=== PATIENT | female | born 1950 | race Caucasian/White ===

== ENCOUNTER → 2019-10-21 09:27 | Outpatient (CLI) | payer OTHER, SELFPAY ==
--- NOTE | 2019-10-21 09:30 | DI.ECHO.S_ITS ---
[facility] +---------+ : : [address] : [place] : : : : [id number] : : : : Phone: [phone]+ Echocardiogram Report + + :Name: DEBBIE DE DIOS Study Date: 10/21/2019 Height: 69 in : :[facility] Weight: 120 lb : : Gender: Female BSA: 1.7 m2 : :: 1950 Age: 69 yrs BP: 132/80 mmHg: :Reason For Study: aortic stenosis : : Performed By: Nataliia Hines : :Referring: DAIN ARAGON : + + Interpretation Summary The aortic valve is bicuspid. The right and left coronary cusps are fused. There is mild to moderate, closer to mild, aortic stenosis with mild ascending aorta dilatation and turbulent flow. The left ventricular ejection fraction is normal. Left ventricular wall motion is normal. Diastolic parameters suggest probable normal left ventricular diastolic function and normal filling pressures. The right ventricle is normal in size and function. The right ventricular systolic pressure is estimated to be at least 21 mmHg based on an estimated right atrial pressure of 3 mm Hg. -Overall this echocardiogram shows a congenitally bicuspid aortic valve with mild ascending aorta dilatation as described above with [id number] aortic stenosis, which closer to mild range given patient body size despite calculated ALON, the indexed ALON is 0.82 cm^2/m^2. Peak velocity is 2.4 m/s, mean gradient 13 mmHg and severity ratio of 0.42. -No prior echo for comparison. Procedure: A two-dimensional transthoracic echocardiogram with color flow and Doppler was performed. The study quality was technically adequate. There is no prior echocardiogram noted for this patient. The patient was in sinus bradycardia with heart rates between 54-71 bpm during the exam. Left Ventricle: The left ventricle is normal in size and wall thickness. The ejection fraction is estimated to be 50-55%. The left ventricular ejection fraction is normal. Left ventricular wall motion is normal. Diastolic parameters suggest probable normal left ventricular diastolic function and normal filling pressures. Right Ventricle: The right ventricle is normal in size and function. Atria: Both atria are normal in size. There is no Doppler evidence for an interatrial shunt. Mitral Valve: There is a flat closure plane of the the mitral valve leaflets. There is trace mitral regurgitation. Aortic Valve: The aortic valve is bicuspid. The right and left coronary cusps are fused. Post-stenotic turbulence is visualized. There is mild to moderate aortic stenosis. No aortic regurgitation is present. Tricuspid Valve: The tricuspid valve is normal in structure and function. There is mild tricuspid regurgitation. The right ventricular systolic pressure is estimated to be at least 21 mmHg based on an estimated right atrial pressure of 3 mm Hg. Pulmonic Valve: The pulmonic valve is normal in structure and function. There is no pulmonic valvular regurgitation. Great Vessels: The aortic root is mildly dilated. The ascending aorta is mildly enlarged. The ascending aorta diameter corrected for SA is 21.76 mm/mm2. The IVC is of normal diameter and collapses greater than 50% with a sniff. This suggests a low right atrial pressure of 3 mm Hg. Pericardium/ Pleura There is no pericardial effusion. There is no pleural effusion. MMode/2D Measurements & Calculations LVIDd: 4.3 cm LVOT diam: 2.1 cm LVIDs: 2.9 cm Ao root diam: 3.3 cm FS: 31.7 % asc Aorta Diam: 3.7 cm EPSS: 1.1 cm Ao Arch Diam (Prox Trans): 2.8 cm IVSd: 0.72 cm LVPWd: 1.0 cm LV miner. diameter/BSA (cm/m^2): 2.6 LV sys. diameter/BSA (cm/m^2): 1.8 LA A2 area: 15.7 cm2 RA long axis: 3.7 cm LA A4 area: 13.3 cm2 RA area: 10.2 cm2 LA length (vol): 4.2 cm RA vol: 24.2 ml LA vol: 42.0 ml RA : 14.6 ml/m2 LA vol index: 25.2 ml/m2 IVC diam: 1.1 cm RVD1 (basal): 3.5 cm TAPSE: 2.8 cm Doppler Measurements & Calculations Ao V2 max: 238.2 cm/sec LVOT Max Chidi: 99.0 cm/sec Ao V2 mean: 170.7 cm/sec LV V1 max P.9 mmHg Ao max P.7 mmHg LV V1 VTI: 24.9 cm Ao mean P.8 mmHg ALON(I,D): 1.4 cm2 Ao V2 VTI: 59.3 cm ALON(V,D): 1.4 cm2 sev ratio: 0.42 ALON indexed to BSA (cm^2/m^2): 0.84 MV E max chidi: 70.7 cm/sec TR max chidi: 209.1 cm/sec MV A max chidi: 72.9 cm/sec TR max P.5 mmHg MV E/A: 0.97 PA V2 max: 82.4 cm/sec Med Peak E' Chidi: 8.0 cm/sec PA V2 mean: 57.7 cm/sec E/E' med: 8.8 PA mean P.5 mmHg Lat Peak E' Chidi: 11.6 cm/sec PA pr(Accel): 20.9 mmHg E/E' lat: 6.1 PA Accel Time: 0.14 sec E/e' average: 7.5 MV dec time: 0.22 sec MV P1/2t: 66.0 msec MV P1/2t max chidi: 70.3 cm/sec SV(LVOT): 82.6 ml MVA(P1/2t): 3.3 cm2 Electronically signed by: Pepe Ricketts M.D. on Reading Physician:10/21/2019 11:15 AM
== END ==
PROVIDERS: PCP Student in an Organized Health Care Education/Training Program; Referring Provider Student in an Organized Health Care Education/Training Program; Visit Provider Student in an Organized Health Care Education/Training Program
DX: I08.2 Rheumatic disorders of both aortic and tricuspid valves (principal); I77.810 Thoracic aortic ectasia
CPT/HCPCS: 93306

== ENCOUNTER → 2019-11-28 09:51 | Outpatient (CLI) | payer OTHER, SELFPAY | PROVIDERS: PCP Student in an Organized Health Care Education/Training Program; Referring Provider Physician Assistant; Visit Provider Physician Assistant | DX: K90.9 Intestinal malabsorption, unspecified (principal); R19.7 Diarrhea, unspecified | CPT/HCPCS: 82656 ==

== ENCOUNTER → 2019-12-27 09:33 | Outpatient (CLI) | payer OTHER, SELFPAY ==
[2019-12-27 10:05] LABS: Appearance Urine UA SL CLOUDY; Bilirubin Urine UA NEGATIVE (NEGATIVE); Color Urine UA YELLOW; Glucose Urine UA NEGATIVE (Negative); Ketones Urine UA NEGATIVE (NEGATIVE); Leukocyte Esterase Urine UA TRACE (NEGATIVE); Nitrite Urine UA NEGATIVE (Negative); Occult Blood Urine UA 1+ (Negative); Protein Urine UA NEGATIVE (Negative); Urobilinogen Urine UA 0.2 E.U./dL (0.2)
[2019-12-27 10:10] LABS: pH Urine UA 7.5 (4.5-8.0)
[2019-12-27 10:34] LABS: Bacteria Urine Moderate (10-30); Culture Indicated Urine Specimen Cultured; RBC Urine 0-1/HPF (0-5/HPF); Squamous Epithelial Cell Urine 0-1 /HPF (0-5/HPF); WBC Urine 1-5/HPF (0-5/HPF)
== END ==
PROVIDERS: PCP Student in an Organized Health Care Education/Training Program; Referring Provider Student in an Organized Health Care Education/Training Program; Visit Provider Student in an Organized Health Care Education/Training Program
DX: R30.0 Dysuria (principal)
CPT/HCPCS: 81001; 87077; 87086; 87186

== ENCOUNTER → 2020-04-02 13:07 | Outpatient (CLI) | payer MEDICARE, OTHER, SELFPAY ==
--- NOTE | 2020-04-02 13:08 | DI.MG.S_ITS ---
BILATERAL DIGITAL SCREENING MAMMOGRAM 3D/2D WITH CAD: 04/02/2020 CLINICAL: Routine screening. Family history of breast cancer. Comparison is made to exams dated: 11/02/2017 mammogram, 10/19/2016 mammogram, and 10/05/2015 mammogram - [facility]. The tissue of both breasts is heterogeneously dense. This may lower the sensitivity of mammography. Current study was also evaluated with a Computer Aided Detection (CAD) system. There is a possible focal asymmetry in the right breast at 7 o'clock middle depth. This is more prominent. No other significant masses, calcifications, or other findings are seen in either breast. IMPRESSION: INCOMPLETE: NEEDS ADDITIONAL IMAGING EVALUATION The possible focal asymmetry in the right breast is indeterminate. Additional views with possible ultrasound are recommended. This exam was interpreted at Station ID: [id number]. NOTE: For mammograms, a report in lay terms will be sent to the patient. Approximately 15% of breast malignancies will not be visualized mammographically. In the management of a palpable breast mass, a negative mammogram must not discourage biopsy of a clinically suspicious lesion. Electronically Signed By: Chester Good M.D. [facility]/:04/02/2020 17:32:25 letter sent: Additional Imaging Needed ACR BI-RADS Category 0: Incomplete 3340F
== END ==
PROVIDERS: PCP Student in an Organized Health Care Education/Training Program; Referring Provider Student in an Organized Health Care Education/Training Program; Visit Provider Student in an Organized Health Care Education/Training Program
DX: Z12.31 Encounter for screening mammogram for malignant neoplasm of breast (principal); Z80.3 Family history of malignant neoplasm of breast; Z13.820 Encounter for screening for osteoporosis; Z78.0 Asymptomatic menopausal state; Z91.89 Other specified personal risk factors, not elsewhere classified; Z82.62 Family history of osteoporosis; Z87.891 Personal history of nicotine dependence
CPT/HCPCS: 77063; 77067; 77080

== ENCOUNTER → 2020-05-04 09:26 | Outpatient (CLI) | payer MEDICARE, OTHER, SELFPAY ==
--- NOTE | 2020-05-04 09:51 | DI.MG.S_ITS ---
Patient Name: DEBBIE DE DIOS date: 1950 Sex: F Attending Physician: Monica Indications: Date: 05/04/2020 09:41 At the request of: DAIN ARAGON Procedure: MM special view RT UNILATERAL RIGHT DIGITAL DIAGNOSTIC MAMMOGRAM 3D/2D WITH ADDITIONAL VIEWS: 05/04/2020 CLINICAL: Additional evaluation requested from prior study. Comparison is made to exams dated: 04/02/2020 mammogram - [facility], 11/02/2017 mammogram, and 10/19/2016 mammogram - [facility]. The tissue of right breast is heterogeneously dense. This may lower the sensitivity of mammography. The possible focal asymmetry in the right breast at 7 o'clock middle depth is not seen in additional views. No other significant masses or calcifications are seen in the breast. IMPRESSION: BENIGN The focal asymmetry in the right breast is seen on the screening mammogram likely respresents superimposed fibroglandular tissue and is benign. There is no mammographic evidence of malignancy. A 1 year screening mammogram is recommended. This exam was interpreted at Station ID: [id number]. NOTE: For mammograms, a report in lay terms will be sent to the patient. Approximately 15% of breast malignancies will not be visualized mammographically. In the management of a palpable breast mass, a negative mammogram must not discourage biopsy of a clinically suspicious lesion. Electronically Signed By: Cinthia Chen M.D. lk/:05/04/2020 10:00:59 letter sent: Normal Exam ACR BI-RADS Category 2: Benign Finding(s) 3342F
== END ==
PROVIDERS: PCP Student in an Organized Health Care Education/Training Program; Referring Provider Student in an Organized Health Care Education/Training Program; Visit Provider Student in an Organized Health Care Education/Training Program
DX: R92.8 Other abnormal and inconclusive findings on diagnostic imaging of breast (principal)
CPT/HCPCS: 77065; G0279

== ENCOUNTER → 2020-12-08 14:53 | Outpatient (CLI) | payer MEDICARE, OTHER, SELFPAY | PROVIDERS: PCP Student in an Organized Health Care Education/Training Program; Visit Provider Physician Assistant | DX: N39.0 Urinary tract infection, site not specified (principal) | CPT/HCPCS: 87086 ==

== ENCOUNTER → 2021-04-30 10:39 | Outpatient (CLI) | payer MEDICARE, OTHER, SELFPAY ==
--- NOTE | 2021-04-30 | DI.MG.S_ITS ---
BILATERAL DIGITAL SCREENING MAMMOGRAM 3D/2D WITH CAD: 04/30/2021 CLINICAL: Routine screening. Family history of breast cancer. Comparison is made to exams dated: 05/04/2020 mammogram, 04/02/2020 mammogram - [facility], 11/02/2017 mammogram, and 10/19/2016 mammogram - [facility]. The tissue of both breasts is heterogeneously dense. This may lower the sensitivity of mammography. Current study was also evaluated with a Computer Aided Detection (CAD) system. No significant masses, calcifications, or other findings are seen in either breast. There has been no significant interval change. IMPRESSION: NEGATIVE There is no mammographic evidence of malignancy. A 1 year screening mammogram is recommended. This exam was interpreted at Station ID: [id number]. NOTE: For mammograms, a report in lay terms will be sent to the patient. Approximately 15% of breast malignancies will not be visualized mammographically. In the management of a palpable breast mass, a negative mammogram must not discourage biopsy of a clinically suspicious lesion. Electronically Signed By: Kyle brito/mary kate:04/30/2021 11:11:01 letter sent: Normal Exam ACR BI-RADS Category 1: Negative 3341F
== END ==
PROVIDERS: PCP Student in an Organized Health Care Education/Training Program; Referring Provider Student in an Organized Health Care Education/Training Program; Visit Provider Student in an Organized Health Care Education/Training Program
DX: Z12.31 Encounter for screening mammogram for malignant neoplasm of breast (principal); Z80.3 Family history of malignant neoplasm of breast
CPT/HCPCS: 77063; 77067

== ENCOUNTER → 2021-05-17 14:43 | Outpatient (CLI) | payer MEDICARE, OTHER, SELFPAY ==
--- NOTE | 2021-05-17 14:44 | DI.ECHO.S_ITS ---
[facility]---------+ [facility] +---------+ : : [address] : [place] : : : : [id number] : : : : Phone: [phone] +---------+ Echocardiogram Report + + :Name: DEBBIE DE DIOS Study Date: 05/17/2021 Height: 69 in : :[facility] ReadingLocation: Weight: 125 lb : : Gender: Female BSA: 1.7 m2 : :: 1950 Age: 70 yrs BP: 121/76 mmHg: :Reason For Study: SURVEILLANCE OF VALVE ABNORMALITIY : :Ordering Physician: MARGO, : :DAIN Performed By: Nataliia Hines : :Referring: DAIN ARAGON : + + Interpretation Summary Normal left ventricle size with ejection fraction 60-65%. The aortic valve is bicuspid. Mild to moderate aortic stenosis. The peak aortic velocity is 2.9 m/sec. (the previous exam was 2.4 m/sec.) Mild mitral regurgitation. Mld tricuspid regurgitation. The ascending aorta is moderately enlarged. Comparison is made with the echocardiogram of 10/21/2019, aortic stenosis has progressed. Procedure: A two-dimensional transthoracic echocardiogram with color flow and Doppler was performed. The study quality was technically adequate. Comparison is made with the echocardiogram of 10/21/2019. The patient was in sinus bradycardia with heart rates between 50-60 bpm during the exam. Left Ventricle: The left ventricle is normal in size and wall thickness. The ejection fraction is estimated to be 60-65%. Left ventricular wall motion is normal. Right Ventricle: The right ventricle is normal in size and function. Atria: The left atrial size is normal. Right atrial size is normal. There is no Doppler evidence for an interatrial shunt. Mitral Valve: There is a flat closure plane of the the mitral valve leaflets. There is mild mitral regurgitation. Aortic Valve: The aortic valve is bicuspid. Post-stenotic turbulence is visualized. There is mild to moderate aortic stenosis. The peak aortic velocity is 2.9 m/sec. The aortic valve mean gradient is 20 mmHg. The calculated aortic valve area is 1.1 cm2. The peak aortic velocity on the previous exam was 2.4 m/sec. No aortic regurgitation is present. Tricuspid Valve: The tricuspid valve is normal in structure and function. There is mild tricuspid regurgitation. The right ventricular systolic pressure is estimated to be at least 21 mmHg based on an estimated right atrial pressure of 3 mm Hg. Pulmonic Valve: The pulmonic valve is not well seen, but is grossly normal. There is trace pulmonic regurgitation. Great Vessels: The aortic root is mildly dilated. The ascending aorta is moderately enlarged. The IVC is of normal diameter and collapses greater than 50% with a sniff. This suggests a low right atrial pressure of 3 mm Hg. Pericardium/ Pleura There is no pericardial effusion. There is no pleural effusion. MMode/2D Measurements & Calculations LVIDd: 4.9 cm LVOT diam: 2.1 cm LVIDs: 3.3 cm Ao root diam: 3.4 cm FS: 33.1 % asc Aorta Diam: 4.0 cm IVSd: 0.71 cm Ao Arch Diam (Prox Trans): 3.0 cm LVPWd: 0.81 cm LV miner. diameter/BSA (cm/m^2): 2.9 LV sys. diameter/BSA (cm/m^2): 1.9 LA A2 area: 19.0 cm2 RA long axis: 4.3 cm LA A4 area: 13.6 cm2 RA area: 14.5 cm2 LA length (vol): 4.4 cm RA vol: 41.4 ml LA vol: 50.0 ml RA : 24.5 ml/m2 LA vol index: 29.6 ml/m2 IVC diam: 1.2 cm RVD1 (basal): 3.3 cm TAPSE: 2.2 cm Doppler Measurements & Calculations Ao V2 max: 285.1 cm/sec LVOT Max Chidi: 90.1 cm/sec Ao V2 mean: 209.4 cm/sec LV V1 max P.3 mmHg Ao max P.0 mmHg LV V1 VTI: 22.3 cm Ao mean P.3 mmHg ALON(I,D): 1.0 cm2 Ao V2 VTI: 74.0 cm ALON(V,D): 1.1 cm2 sev ratio: 0.30 ALON indexed to BSA (cm^2/m^2): 0.59 MV E max chidi: 71.5 cm/sec TR max chidi: 213.3 cm/sec MV A max chidi: 59.0 cm/sec TR max P.2 mmHg MV E/A: 1.2 PA pr(Accel): 15.6 mmHg Med Peak E' Chidi: 5.8 cm/sec E/E' med: 12.4 Lat Peak E' Chidi: 9.4 cm/sec E/E' lat: 7.6 E/e' average: 10.0 MV dec time: 0.25 sec SV(LVOT): 74.5 ml Electronically signed by: Sherman Salcido on Reading Physician:05/17/2021 06:05 PM
== END ==
PROVIDERS: PCP Student in an Organized Health Care Education/Training Program; Referring Provider Student in an Organized Health Care Education/Training Program; Visit Provider Student in an Organized Health Care Education/Training Program
DX: Q23.1 Congenital insufficiency of aortic valve (principal); I08.3 Combined rheumatic disorders of mitral, aortic and tricuspid valves; I77.810 Thoracic aortic ectasia
CPT/HCPCS: 93306

== ENCOUNTER → 2021-11-26 08:11 | Outpatient (CLI) | payer MEDICARE, OTHER, SELFPAY ==
[2021-11-26 09:07] LABS: Add Manual Diff / Slide Review NO; Basophils Absolute Auto 0 /uL (0-100); Basophils Percent Auto 1.1 % (0-2); Eosinophils Absolute Auto 100 /uL (0-450); Eosinophils Percent Auto 1.8 % (2-4); Hematocrit 40.4 % (36-46); Hemoglobin 13.8 g/dL (12.0-16.0); Lymphocytes Absolute Auto 700 /uL (1100-4500); Lymphocytes Percent Auto 19.8 % (25-40); Mean Corpuscular HGB Conc 34.1 % (30-36); Mean Corpuscular Hemoglobin 30.8 PG (26-34); Mean Corpuscular Volume 90.3 fL (80-100); Monocytes Absolute Auto 400 /uL (0-900); Neutrophils Absolute Auto 2500 /uL (1500-7000); Neutrophils Percent Auto 67.3 % (50-75); Platelet Count 157 X10^3/uL (150-400); Red Blood Cell Count 4.48 X10^6/uL (4.0-5.2); Red Cell Distribution Width 13.6 % (11.6-14.8); White Blood Cell Count 3.7 X10^3/uL (4.5-11.0)
[2021-11-26 09:17] LABS: Alanine Aminotransferase 21 IU/L (<35); Albumin 4.1 g/dL (3.5-5.0); Albumin Globulin Ratio 1.6 (1.0-2.8); Alkaline Phosphatase 68 U/L (38-126); Aspartate Aminotransferase 31 IU/L (14-36); BUN Creatinine Ratio 27.5 (6-22); Bilirubin Total 0.7 mg/dL (0.2-1.3); Blood Urea Nitrogen 19 mg/dL (7-17); Calcium 9.1 mg/dL (8.4-10.2); Carbon Dioxide 31 mmol/L (22-32); Chloride 105 mmol/L (98-107); Cholesterol 182 mg/dL (140-199); Estimated Glomerular Filt Rate > 60.0 mL/min (>60); Globulin 2.5 g/dL (1.7-4.1); Glucose 90 mg/dL (80-110); HEMOLYSIS < 15 (0-50); Potassium 4.4 mmol/L (3.4-5.1); Sodium 141 mmol/L (137-145); Total Protein 6.6 g/dL (6.3-8.2); Triglycerides 31 mg/dL (35-150)
[2021-11-26 09:28] LABS: HDL Cholesterol 114 mg/dL (40-60); LDL Cholesterol Calculated 62 mg/dL (<100)
== END ==
PROVIDERS: PCP Student in an Organized Health Care Education/Training Program; Referring Provider Student in an Organized Health Care Education/Training Program; Visit Provider Student in an Organized Health Care Education/Training Program
DX: K52.9 Noninfective gastroenteritis and colitis, unspecified (principal); Z13.6 Encounter for screening for cardiovascular disorders
CPT/HCPCS: 36415; 80053; 80061; 85025

== ENCOUNTER → 2021-12-22 17:40 | Outpatient (ROUT) | payer SELFPAY ==
[2021-12-23 07:08] LABS: HBsAg Screen Negative (Negative); Hepatitis A Antibody IgM Negative (Negative); Hepatitis B Core Antibody IgM Negative (Negative); Hepatitis C Antibody <0.1 s/co ratio (0.0-0.9)
[2021-12-23 16:40] LABS: HIV 1 & 2 Ab/Ag 4th Gen Combo NEGATIVE (NEGATIVE)
== END ==
PROVIDERS: PCP Student in an Organized Health Care Education/Training Program; Visit Provider Student in an Organized Health Care Education/Training Program
DX: Z77.21 Contact with and (suspected) exposure to potentially hazardous body fluids; W46.1XXA Contact with contaminated hypodermic needle, initial encounter
CPT/HCPCS: 36415; 80074; 87389

== ENCOUNTER → 2022-04-29 11:53 | Outpatient (CLI) | payer MEDICARE, OTHER, SELFPAY ==
--- NOTE | 2022-04-29 11:55 | DI.US.S_ITS ---
ULTRASOUND OF RIGHT BREAST: 04/29/2022 CLINICAL: Diffuse right breast pain x 2 months. Comparison is made to exams dated: 04/29/2022 mammogram, 04/30/2021 mammogram, 05/04/2020 mammogram, 04/02/2020 mammogram - [facility], and 11/02/2017 mammogram - [facility]. Ultrasound of the right breast was performed on the area of interest. Key scale images of the real-time examination were reviewed. IMPRESSION: NEGATIVE There is no sonographic evidence of malignancy. There is no mammographic or sonographic abnormality seen in the right breast to correspond with the pain, however, clinical followup is recommended. A 1 year screening mammogram is recommended. This exam was interpreted at Station ID: [id number]. Electronically Signed By: Cinthia monteiro/:04/29/2022 13:13:46 letter sent: Clinical Evaluation Ultrasound BI-RADS: 1 Negative
--- NOTE | 2022-04-29 11:55 | DI.MG.S_ITS ---
BILATERAL DIGITAL DIAGNOSTIC MAMMOGRAM 3D/2D: 04/29/2022 CLINICAL: Right breast pain. Comparison is made to exams dated: 04/30/2021 mammogram, 05/04/2020 mammogram, 04/02/2020 mammogram - [facility], and 11/02/2017 mammogram - [facility]. Both breasts are heterogeneously dense, which may obscure small masses (category c / 51-75% glandular tissue). No significant masses, calcifications, or other findings are seen in either breast. IMPRESSION: INCOMPLETE: NEEDS ADDITIONAL IMAGING EVALUATION There is no mammographic abnormality seen in the right breast to correspond with the pain, however, targeted ultrasound of the right breast is recommended and will be performed immediately following this exam. Based on the Tyrer Cuzick model (a risk assessment model) the patient's lifetime risk is 13.9% and her 10 year risk is 9.6%. According to the ACR, ACS, and NCCN guidelines, an annual breast MRI exam along with mammogram is recommended if the patient's lifetime risk is 20% or greater. This exam was interpreted at Station ID: [id number]. NOTE: For mammograms, a report in lay terms will be sent to the patient. Approximately 15% of breast malignancies will not be visualized mammographically. In the management of a palpable breast mass, a negative mammogram must not discourage biopsy of a clinically suspicious lesion. Electronically Signed By: Cinthia Chen M.D. lk/:04/29/2022 12:34:05 ACR BI-RADS Category 0: Incomplete 3340F
== END ==
PROVIDERS: PCP Student in an Organized Health Care Education/Training Program; Referring Provider Student in an Organized Health Care Education/Training Program; Visit Provider Student in an Organized Health Care Education/Training Program
DX: N64.4 Mastodynia (principal)
CPT/HCPCS: 76642; 77066; G0279

== ENCOUNTER → 2022-09-28 12:44 | Outpatient (CLI) | payer MEDICARE, SELFPAY | PROVIDERS: PCP Student in an Organized Health Care Education/Training Program; Referring Provider Student in an Organized Health Care Education/Training Program; Visit Provider Student in an Organized Health Care Education/Training Program | DX: Z78.0 Asymptomatic menopausal state (principal); Z13.820 Encounter for screening for osteoporosis; M85.852 Other specified disorders of bone density and structure, left thigh | CPT/HCPCS: 77080 ==

== ENCOUNTER → 2022-10-06 09:11 | Outpatient (CLI) | payer MEDICARE, SELFPAY ==
--- NOTE | 2022-10-06 09:12 | DI.RAD.S_ITS ---
PROCEDURE: XR KNEE RT 3V INDICATIONS: Assess baseline osteoarthritis TECHNIQUE: 3 views of the knee were acquired. COMPARISON: None. FINDINGS: Bones: No fractures or dislocations. No suspicious bony lesions. Soft tissues: Trace joint effusion. No suspicious soft tissue calcifications. IMPRESSION: Mild degenerative joint disease. Dictated by: Justin Gaffney M.D. on 10/06/2022 at 13:11 Approved by: Justin Gaffney M.D. on 10/06/2022 at 13:14
--- NOTE | 2022-10-06 09:12 | DI.RAD.S_ITS ---
PROCEDURE: XR KNEE LT 3V INDICATIONS: Assess baseline osteoarthritis TECHNIQUE: 3 views of the knee were acquired. COMPARISON: None. FINDINGS: Bones: No fractures or dislocations. No suspicious bony lesions. Mild tricompartmental osteoarthritis. Soft tissues: Trace joint effusion. No suspicious soft tissue calcifications. IMPRESSION: Mild tricompartmental osteoarthritis. Dictated by: Justin Gaffney M.D. on 10/06/2022 at 12:25 Approved by: Justin Gaffney M.D. on 10/06/2022 at 17:20
== END ==
PROVIDERS: PCP Student in an Organized Health Care Education/Training Program; Referring Provider Student in an Organized Health Care Education/Training Program; Visit Provider Student in an Organized Health Care Education/Training Program
DX: M17.0 Bilateral primary osteoarthritis of knee (principal); M25.561 Pain in right knee; M25.562 Pain in left knee
CPT/HCPCS: 73562

== ENCOUNTER → 2022-11-04 10:18 | Outpatient (CLI) | payer MEDICARE, SELFPAY ==
[2022-11-04 12:11] LABS: NT-proBNP (BNP-Adult 18+) 138 pg/mL (<125)
== END ==
PROVIDERS: Family Provider Student in an Organized Health Care Education/Training Program; PCP Student in an Organized Health Care Education/Training Program; Referring Provider Internal Medicine Cardiovascular Disease; Visit Provider Internal Medicine Cardiovascular Disease
DX: Q23.1 Congenital insufficiency of aortic valve (principal)
CPT/HCPCS: 36415; 83880

== ENCOUNTER 2023-02-13 11:15 | Outpatient (RCR) | payer MEDICARE, SELFPAY ==
--- NOTE | 2022-12-12 19:12 | PT.OIE ---
Current Diagnoses Stiffness of right hip, not elsewhere classified (12/12/22) Stiffness of left hip, not elsewhere classified (12/12/22) Muscle weakness (generalized) (12/12/22) Overactive bladder (12/12/22) Urinary tract infection, site not specified (12/12/22) Past Medical History (Last Updated 11/03/22 @ 12:44 by Barbie Thompson RN) Aortic regurgitation (~2001) Aortic stenosis (~2001) Chicken pox (~1998) Diverticulosis large intestine w/o perforation or abscess w/o bleeding Dyspareunia Herpes (~1994) History of urinary incontinence (~2001) Measles (~1959) Other acquired deformities of right foot Rosacea (~2007) Vision disorder Past Surgical History (Last Updated 10/01/19 @ 19:50 by Chela Ashley) Anesthesia History of breast implant (~1988) History of breast implant removal (~1995) History of cataract removal with insertion of prosthetic lens (~2018) Visit Care Team Role Provider Type Deshaun Anderson MD Family Provider Physician Primary Care Provider Specialty: Internal Medicine Address: [address] [place] [address], [address], [address] Email: [email or web address] Imani Hummel DO Attending Provider Non-Staff Referring Provider Specialty: LITERACY SPECIALIST Address: [address] [place] [address], [id number] Email: Physical Therapy Initial Evaluation PT-OP-A Visit Information Start: 12/03/22 16:51 Freq: Status: Active Protocol: Document 12/12/22 10:37 LRN (Rec: 12/12/22 11:22 LRN [id number]) Out-Patient Physical Therapy Visit Information Visit Information Visit Type Initial Evaluation Visit Start Time 10:36 Visit Stop Time 11:20 Total Visit Minutes 46 Visit Number 1 Evaluation Information Evaluation Date 12/12/22 Precautions Precautions Biscuspid aortic valve being monitored every 6 months. , no children. Takes an anti-biotic after intercourse to prevent UTI's. PT-OP-B Current Condition Start: 12/03/22 16:51 Freq: Status: Active Protocol: Document 12/12/22 10:37 LRN (Rec: 12/12/22 11:22 LRN [id number]) Current Condition History of Current Condition Onset Date 1 year ago. Current Complaints Urinary leakage with an urge. History of Current Condition Pt reports she got metal balls to strengthen her PF but they would fall out. She has also noticed that with friends when she drinks wine, watching TV when she gets up to use the bathroom she has urinary leakage. She will wet her underwear if she waits too long. She has on her own cut expresso in the morning and has found it is helpful. She reports urinating 8-10 times a day and 1 time during the night. Prior Treatments and Tests Pt purchased on her own weighted vaginal balls for PF strengthening. She used them for couple of weeks in standing, did not try in supine. Treatment Goals Patient/Caregiver Goals Pt goal is 1) to look for strengthening help. To strengthen her pelvic floor muscles so on standing, after waiting too long, she has no urinary leakage. 2) Be placed on a HEP of PF strengthening exercises. Personal Factors Other Personal Factors That May Effect Active: Plays golf w/o use of Therapy/Recovery cart, walks dog 1-2 miles daily. Pt wanting to get back into lifting weights to improve UE strength; therefore plans to use home row machine and join a gym to start lifting weights. PT-OP-C Subjective Start: 12/03/22 16:51 Freq: Status: Active Protocol: Document 12/12/22 10:37 LRN (Rec: 12/12/22 11:22 LRN [id number]) Patient Questionnaires Pelvic Pain and Urgency/Frequency Patient Symptom Scale Pelvic Pain Score 20 PT-OP-I Pelvic Floor Start: 12/03/22 16:51 Freq: Status: Active Protocol: Document 12/12/22 10:37 LRN (Rec: 12/12/22 11:22 LRN [id number]) Pelvic Floor Assessment Urine Urinary Symptoms Urge Sensation Other Urinary Symptoms Spasm after urinating. Urine goes off to a side. Leakage Cause Urge Leaks Per Day 1 Nocturia 1 Pads Used In 24 Hours 0 Bowel Bowel Surgery No Other Bowel Symptoms Pt notes she is lactose intolerant and foods with a lot of fat causes diahrrea. Bowel Movement Frequency 1-2x/daily [place] Stool Chart Type 1-7 4 Prolapse Cystocele Grade 2 Urethrocele Grade 2 Prolapse Comments Uterine prolapse is present Perineal Descent Resting Absent Bearing Absent Contraction Ability Voluntary Contraction Weak Manual Muscle Testing Left 0 Manual Muscle Testing Right 0 Manual Muscle Testing Anterior 0 Manual Muscle Testing Posterior 2 Muscle Endurance (Seconds) 1 Number of Quick Contractions In 10 3 Seconds Comments Pelvic Floor Comments Pt external PF tissues are dry . Redness is present in the labia majora and on the inside at the vaginal entry. PF contraction is with moderate use of TA and visible gluteal but not significant. No contraction is felt with hip AD. PT-OP-J Posture/Palpation/Skin Start: 12/03/22 16:51 Freq: Status: Active Protocol: Document 12/12/22 10:37 LRN (Rec: 12/12/22 11:22 LRN [id number]) Posture Evaluation Position Standing Head/C-Spine Posture Forward Head L-Spine Posture Shifted Left Shoulder Posture (L) Elevated Scapula Posture (L) Elevated Pelvis Posture Anteriorly Tilted,(L) Iliac Crest Superior Comments Posture Comments Trunk lean to left PT-OP-K Range of Motion Start: 12/03/22 16:51 Freq: Status: Active Protocol: Document 12/12/22 10:37 LRN (Rec: 12/12/22 11:22 LRN [id number]) Lumbar Spine Range of Motion Lumbar Spine Active Degrees Testing Position Standing Flexion 72 Extension 15 Rotation Left 12 Rotation Right 10 Lateral Flexion Left 13 Lateral Flexion Right 15 ROM Limitations Soft Tissue Tightness Hip Goniometric Range of Motion Hip Right Passive Testing Position Supine Internal Rotation 40 External Rotation 45 Left Passive Testing Position Supine Internal Rotation 45 External Rotation 50 PT-OP-M Strength Start: 12/03/22 16:51 Freq: Status: Active Protocol: Document 12/12/22 10:37 LRN (Rec: 12/12/22 11:22 LRN [id number]) Trunk Strength Trunk Manual Muscle Testing Core Stabilization Loss of core stab with L hip flex and extension Hip Strength Hip Manual Muscle Testing Right Comments All strength is 5/5 Left Comments All strength is 5/5 PT-OP-Q Treatments Start: 12/03/22 16:51 Freq: Status: Active Protocol: Document 12/12/22 10:37 LRN (Rec: 12/12/22 11:22 LRN [id number]) Self-Care/Home Management Treatment Education Patient Education Body Mechanics,Home Exercise Program Other Education Discussed results of evaluation, goals, and plan of care (POC). Pt agreeable to goals and POC. Education and transfer training with coordination of proper breathing to minimize core pressures for stand<>sit< >supine. Activities Self-Care/Home Management Activities Issued & reviewed HEP: Kegel exercises for Quick Flicks, Long Holds & Aggrevators. PT-OP-T Assessment and Plan Start: 12/03/22 16:51 Freq: Status: Active Protocol: Document 12/12/22 10:37 LRN (Rec: 12/12/22 11:22 LRN [id number]) Physical Therapy Assessment Rehab Potential Rehabilitation Potential Excellent Evaluation Complexity Number of Personal Factors/Comorbidities 1-2 Number of Body Systems Impaired 4 or More Clinical Presentation at Evaluation Evolving Impairments Impairments Activity Tolerance,Posture,ROM ,Strength,Transfers Other Impairments Urge urinary leakage. Goals Four Impairment Redness and tenderness at the Labia Minora Short Term Goal (STG) Pt will be educated in proper vulvar/genital care. STG Duration 01/06/23 Three Impairment Decreased PF strength Short Term Goal (STG) Pt will be educated in urinary delay technique to be able to hold her urine in the presence of an urge until making it to a bathroom. STG Duration 01/13/23 Meal Cooker Goal (LTG) Improve PF strength with pt able to hold PF contraction for 8-10 secs in order to prevent urinary leakage with transfer sit<>chief financial officer the presence of an urge. LTG Duration 02/24/23 Two Impairment Decreased hip and trunk mobility Impairment Hip PROM (in deg's): IR: 40 R , 45 L; ER 45 R, 50 L. Lumbar AROM (in deg's): Flex 72, Ext 10, lateral flex 13 L, 15 R. Short Term Goal (STG) Pt will be educated in hip ( rotators, iliopsoas) and trunk (hamstring) mobility ex's to improve mobility and posture with proper core abdominal pressures during exercise and be able to exercise at her local gym w/o urinary leakage. STG Duration 01/13/23 Meal Cooker Goal (LTG) Improve hip mobility with pt able to perform Quick contractions in order to prevent urinary leakage in the presence of a strong urge. LTG Duration 02/24/23 One Impairment Pt lacks an independent self care HEP. Short Term Goal (STG) Pt educated in proper transfers to lessen core abdominal pressure. 12/12/22: Pt educated in proper transfer stand<>sit<> supine with initial education in lessening core abdominal pressure. STG Duration 12/23/22 Meal Cooker Goal (LTG) Pt will be independent in a self care HEP for PF strengthening. LTG Duration 02/24/23 Assessment Summary Assessment Pt is a 72 year old female with urge incontinence with reported episodes of stress incontinence. The pt is very weak in her pelvic floor (PF) muscles both with long holds and quick flicks. She demonstrates decreased hip and trunk mobility and decreased core stability, that probably limits her PF strength of contraction. She has dry tissues of her PF and has redness at the entry of her vagina with redness and tenderness at her Labia Minora . The pt may benefit from estrogen cream to improve the health of her pelvic floor. The pt will benefit from skilled physical therapy to work towards achieving the above stated goals. Physical Therapy Plan Frequency and Duration Frequency of Treatment 1x/Week Plan of Care Start Date 12/12/22 Plan of Care End Date 02/24/23 Therapeutic Interventions Therapeutic Interventions Home Exercise Program,Manual Therapy,Neuromuscular Re- education,Patient/Caregiver Education,Self-Care/Home Management,Soft Tissue Mobilization,Therapeutic Activities,Therapeutic Exercises Modalities Biofeedback,Cold Pack/Ice Massage,Electric Stimulation Other Referrals/Consults Referrals/Consults Recommended Assessment for redness of her PF tissues at the labia minor and vaginal entry and for dryness of PF tissues. Next Visit Focus/Plan Next Note Type Treatment Note Next Visit Plan Review bladder diary and discuss fluid management, teaching urge deference technique. Review proper breathing with transfer for proper core pressure management. Assess deep breathing and start LE roll in/out ex when appropriate. Education in vulvar/genital care and body mechanics. Educate & train Kegel without use of substitute muscles. Ex/HEP: PF/core stabilization strengthening, improve hip mobility. Assess abdominal soft tissue ( bladder) mobility.
--- NOTE | 2022-12-12 19:12 | PT.OPPOC ---
Physical, Occupational & Speech Therapy At [facility] Current Diagnoses Stiffness of right hip, not elsewhere classified (12/12/22) Stiffness of left hip, not elsewhere classified (12/12/22) Muscle weakness (generalized) (12/12/22) Overactive bladder (12/12/22) Urinary tract infection, site not specified (12/12/22) Visit Care Team Role Provider Type Deshaun Anderson MD Family Provider Physician Primary Care Provider Specialty: Internal Medicine Address: [address] [place] [address], [address], [address] Email: [email or web address] Imani Hummel DO Attending Provider Non-Staff Referring Provider Specialty: SAND SYSTEM OPERATOR Address: [address] [place], [address] Email: Plan Of Care PT-OP-T Assessment and Plan Start: 12/03/22 16:51 Freq: Status: Active Protocol: Document 12/12/22 10:37 LRN (Rec: 12/12/22 11:22 LRN [id number]) Physical Therapy Assessment Rehab Potential Rehabilitation Potential Excellent Evaluation Complexity Number of Personal Factors/Comorbidities 1-2 Number of Body Systems Impaired 4 or More Clinical Presentation at Evaluation Evolving Impairments Impairments Activity Tolerance,Posture,ROM ,Strength,Transfers Other Impairments Urge urinary leakage. Goals Four Impairment Redness and tenderness at the Labia Minora Short Term Goal (STG) Pt will be educated in proper vulvar/genital care. STG Duration 01/06/23 Three Impairment Decreased PF strength Short Term Goal (STG) Pt will be educated in urinary delay technique to be able to hold her urine in the presence of an urge until making it to a bathroom. STG Duration 01/13/23 Language Arts Teacher Goal (LTG) Improve PF strength with pt able to hold PF contraction for 8-10 secs in order to prevent urinary leakage with transfer sit<>information systems operator the presence of an urge. LTG Duration 02/24/23 Two Impairment Decreased hip and trunk mobility Impairment Hip PROM (in deg's): IR: 40 R , 45 L; ER 45 R, 50 L. Lumbar AROM (in deg's): Flex 72, Ext 10, lateral flex 13 L, 15 R. Short Term Goal (STG) Pt will be educated in hip ( rotators, iliopsoas) and trunk (hamstring) mobility ex's to improve mobility and posture with proper core abdominal pressures during exercise and be able to exercise at her local gym w/o urinary leakage. STG Duration 01/13/23 Language Arts Teacher Goal (LTG) Improve hip mobility with pt able to perform Quick contractions in order to prevent urinary leakage in the presence of a strong urge. LTG Duration 02/24/23 One Impairment Pt lacks an independent self care HEP. Short Term Goal (STG) Pt educated in proper transfers to lessen core abdominal pressure. 12/12/22: Pt educated in proper transfer stand<>sit<> supine with initial education in lessening core abdominal pressure. STG Duration 12/23/22 Language Arts Teacher Goal (LTG) Pt will be independent in a self care HEP for PF strengthening. LTG Duration 02/24/23 Assessment Summary Assessment Pt is a 72 year old female with urge incontinence with reported episodes of stress incontinence. The pt is very weak in her pelvic floor (PF) muscles both with long holds and quick flicks. She demonstrates decreased hip and trunk mobility and decreased core stability, that probably limits her PF strength of contraction. She has dry tissues of her PF and has redness at the entry of her vagina with redness and tenderness at her Labia Minora . The pt may benefit from estrogen cream to improve the health of her pelvic floor. The pt will benefit from skilled physical therapy to work towards achieving the above stated goals. Physical Therapy Plan Frequency and Duration Frequency of Treatment 1x/Week Plan of Care Start Date 12/12/22 Plan of Care End Date 02/24/23 Therapeutic Interventions Therapeutic Interventions Home Exercise Program,Manual Therapy,Neuromuscular Re- education,Patient/Caregiver Education,Self-Care/Home Management,Soft Tissue Mobilization,Therapeutic Activities,Therapeutic Exercises Modalities Biofeedback,Cold Pack/Ice Massage,Electric Stimulation Other Referrals/Consults Referrals/Consults Recommended Assessment for redness of her PF tissues at the labia minor and vaginal entry and for dryness of PF tissues. Next Visit Focus/Plan Next Note Type Treatment Note Next Visit Plan Review bladder diary and discuss fluid management, teaching urge deference technique. Review proper breathing with transfer for proper core pressure management. Assess deep breathing and start LE roll in/out ex when appropriate. Education in vulvar/genital care and body mechanics. Educate & train Kegel without use of substitute muscles. Ex/HEP: PF/core stabilization strengthening, improve hip mobility. Assess abdominal soft tissue ( bladder) mobility. Plan of Care Dates Plan of Care Start Date 12/12/22 Plan of Care End Date 02/24/23 Electronically Signed by: Cinthia Granger, PT 12/12/22 2301 If you are in agreement with this Plan of Care, please return a signed and dated copy. I have reviewed this Plan of Care and certify that the skilled therapy services above are required to meet the patient?s needs. Physician Signature Date Printed Name and Credentials Clinical Instructor Signature Printed Name and Credentials
--- NOTE | 2022-12-19 12:54 | PT.OTN ---
Current Diagnoses Stiffness of right hip, not elsewhere classified (12/19/22) Stiffness of left hip, not elsewhere classified (12/19/22) Muscle weakness (generalized) (12/19/22) Overactive bladder (12/19/22) Urinary tract infection, site not specified (12/19/22) Physical Therapy Treatment Note PT-OP-A Visit Information Start: 12/03/22 16:51 Freq: Status: Active Protocol: Document 12/19/22 08:03 LRN (Rec: 12/19/22 08:50 LRN [id number]) Out-Patient Physical Therapy Visit Information Visit Information Visit Type Treatment Note Visit Start Time 08:03 Visit Stop Time 08:43 Total Visit Minutes 40 Visit Number 1 Evaluation Information Evaluation Date 12/12/22 Precautions Precautions Biscuspid aortic valve being monitored every 6 months. , no children. Takes an anti-biotic after intercourse to prevent UTI's. PT-OP-B Current Condition Start: 12/03/22 16:51 Freq: Status: Active Protocol: Document 12/12/22 10:37 LRN (Rec: 12/12/22 11:22 LRN [id number]) Current Condition History of Current Condition Onset Date 1 year ago. Current Complaints Urinary leakage with an urge. History of Current Condition Pt reports she got metal balls to strengthen her PF but they would fall out. She has also noticed that with friends when she drinks wine, watching TV when she gets up to use the bathroom she has urinary leakage. She will wet her underwear if she waits too long. She has on her own cut expresso in the morning and has found it is helpful. She reports urinating 8-10 times a day and 1 time during the night. Prior Treatments and Tests Pt purchased on her own weighted vaginal balls for PF strengthening. She used them for couple of weeks in standing, did not try in supine. Treatment Goals Patient/Caregiver Goals Pt goal is 1) to look for strengthening help. To strengthen her pelvic floor muscles so on standing, after waiting too long, she has no urinary leakage. 2) Be placed on a HEP of PF strengthening exercises. Personal Factors Other Personal Factors That May Effect Active: Plays golf w/o use of Therapy/Recovery cart, walks dog 1-2 miles daily. Pt wanting to get back into lifting weights to improve UE strength; therefore plans to use home row machine and join a gym to start lifting weights. PT-OP-C Subjective Start: 12/03/22 16:51 Freq: Status: Active Protocol: Document 12/19/22 08:03 LRN (Rec: 12/19/22 08:50 LRN [id number]) OP-PT Subjective Patient Comments Patient Comments Noticed that she urinates a lot. PT-OP-I Pelvic Floor Start: 12/03/22 16:51 Freq: Status: Active Protocol: Document 12/12/22 10:37 LRN (Rec: 12/12/22 11:22 LRN [id number]) Pelvic Floor Assessment Urine Urinary Symptoms Urge Sensation Other Urinary Symptoms Spasm after urinating. Urine goes off to a side. Leakage Cause Urge Leaks Per Day 1 Nocturia 1 Pads Used In 24 Hours 0 Bowel Bowel Surgery No Other Bowel Symptoms Pt notes she is lactose intolerant and foods with a lot of fat causes diahrrea. Bowel Movement Frequency 1-2x/daily [place] Stool Chart Type 1-7 4 Prolapse Cystocele Grade 2 Urethrocele Grade 2 Prolapse Comments Uterine prolapse is present Perineal Descent Resting Absent Bearing Absent Contraction Ability Voluntary Contraction Weak Manual Muscle Testing Left 0 Manual Muscle Testing Right 0 Manual Muscle Testing Anterior 0 Manual Muscle Testing Posterior 2 Muscle Endurance (Seconds) 1 Number of Quick Contractions In 10 3 Seconds Comments Pelvic Floor Comments Pt external PF tissues are dry . Redness is present in the labia majora and on the inside at the vaginal entry. PF contraction is with moderate use of TA and visible gluteal but not significant. No contraction is felt with hip AD. PT-OP-J Posture/Palpation/Skin Start: 12/03/22 16:51 Freq: Status: Active Protocol: Document 12/12/22 10:37 LRN (Rec: 12/12/22 11:22 LRN [id number]) Posture Evaluation Position Standing Head/C-Spine Posture Forward Head L-Spine Posture Shifted Left Shoulder Posture (L) Elevated Scapula Posture (L) Elevated Pelvis Posture Anteriorly Tilted,(L) Iliac Crest Superior Comments Posture Comments Trunk lean to left PT-OP-K Range of Motion Start: 12/03/22 16:51 Freq: Status: Active Protocol: Document 12/12/22 10:37 LRN (Rec: 12/12/22 11:22 LRN [id number]) Lumbar Spine Range of Motion Lumbar Spine Active Degrees Testing Position Standing Flexion 72 Extension 15 Rotation Left 12 Rotation Right 10 Lateral Flexion Left 13 Lateral Flexion Right 15 ROM Limitations Soft Tissue Tightness Hip Goniometric Range of Motion Hip Right Passive Testing Position Supine Internal Rotation 40 External Rotation 45 Left Passive Testing Position Supine Internal Rotation 45 External Rotation 50 PT-OP-M Strength Start: 12/03/22 16:51 Freq: Status: Active Protocol: Document 12/12/22 10:37 LRN (Rec: 12/12/22 11:22 LRN [id number]) Trunk Strength Trunk Manual Muscle Testing Core Stabilization Loss of core stab with L hip flex and extension Hip Strength Hip Manual Muscle Testing Right Comments All strength is 5/5 Left Comments All strength is 5/5 PT-OP-Q Treatments Start: 12/03/22 16:51 Freq: Status: Active Protocol: Document 12/19/22 08:03 LRN (Rec: 12/19/22 08:50 LRN [id number]) Therapeutic Exercises Supine Exercises LE Roll in/out Supine Exercise Name LE Roll in/out Comments Pt assist for LE movement. Deep Breathing Supine Exercise Name Deep Breathing Comments Much cuing needed for chest and lower ribs/abdomen for proper coordination Other Exercises Sup<>Sigt<>Stand Other Exercise Name Transfer with breath and PF contraction Comments Verbal and phys cuing needed for breath, PF contractions, & mvmt Self-Care/Home Management Treatment Education Other Education Discussed at length Bladder diary and noted dialy BM's with normal stool. Recommendations made such as drinking water before bladder irritants (caffeine and wine), reducing bladder irritants, etc.., discussed times between voiding, as longer with more fluids and the possibility of needing to retrain bladder. Educated and discussed urinary delay techinque. Discussed water hydration norms. Activities Self-Care/Home Management Activities Handout issued & reviewed for Bladder Irritants, Urge deference technque, and Diaphragmatic breathing with LE roll in/outs. PT-OP-T Assessment and Plan Start: 12/03/22 16:51 Freq: Status: Active Protocol: Document 12/19/22 08:03 LRN (Rec: 12/19/22 08:50 LRN [id number]) Physical Therapy Assessment Goals Four Impairment Redness and tenderness at the [place] Short Term Goal (STG) Pt will be educated in proper vulvar/genital care. STG Duration 01/06/23 Three Impairment Decreased PF strength Short Term Goal (STG) Pt will be educated in urinary delay technique to be able to hold her urine in the presence of an urge until making it to a bathroom. 12/19/22: Bladder Irritants and Urge deference techinque. STG Duration 01/13/23 (12/19/22: MET GOAL) Halfway Goal (LTG) Improve PF strength with pt able to hold PF contraction for 8-10 secs in order to prevent urinary leakage with transfer sit<>fuel cell binder the presence of an urge. LTG Duration 02/24/23 Two Impairment Decreased hip and trunk mobility Impairment Hip PROM (in deg's): IR: 40 R , 45 L; ER 45 R, 50 L. Lumbar AROM (in deg's): Flex 72, Ext 10, lateral flex 13 L, 15 R. Short Term Goal (STG) Pt will be educated in hip ( rotators, iliopsoas) and trunk (hamstring) mobility ex's to improve mobility and posture with proper core abdominal pressures during exercise and be able to exercise at her local gym w/o urinary leakage. STG Duration 01/13/23 Halfway Goal (LTG) Improve hip mobility with pt able to perform Quick contractions in order to prevent urinary leakage in the presence of a strong urge. LTG Duration 02/24/23 One Impairment Pt lacks an independent self care HEP. Short Term Goal (STG) Pt educated in proper transfers to lessen core abdominal pressure. 12/12/22: Pt educated in proper transfer stand<>sit<> supine with initial education in lessening core abdominal pressure. 12/19/22: Pt educated in proper transfer sup<>sit<>stand coordinating breath work and PF contractions. STG Duration 12/23/22 (12/19/22: MET GOAL) Halfway Goal (LTG) Pt will be independent in a self care HEP for PF strengthening. LTG Duration 02/24/23 Progress Towards Goals Progress Comments Educated Bladder Irritants and Urge deference techinque, deep breathing with assisted LE roll in/outs. Assessment Summary Assessment Pt attends due to urge incontinence with reported episodes of stress incontinence, but after bladder diary review appears to be primarily stress incontinence. Pt learns quickly, but has trouble with abdominal breathing, breathing mainly thorught chest; therefore further training needed. Physical Therapy Plan Frequency and Duration Frequency of Treatment 1x/Week Plan of Care Start Date 12/12/22 Plan of Care End Date 02/24/23 Next Visit Focus/Plan Next Note Type Treatment Note Next Visit Plan Review: deep breathing and LE roll in/out ex. Education in vulvar/genital care and body mechanics. Educate & train Kegel on wedge without use of substitute muscles. Ex/HEP: PF/core stabilization strengthening, improve hip mobility. Assess abdominal soft tissue ( bladder) mobility.
--- NOTE | 2022-12-26 17:50 | PT.OTN ---
Current Diagnoses Stiffness of right hip, not elsewhere classified (12/26/22) Stiffness of left hip, not elsewhere classified (12/26/22) Muscle weakness (generalized) (12/26/22) Overactive bladder (12/26/22) Urinary tract infection, site not specified (12/26/22) Physical Therapy Treatment Note PT-OP-A Visit Information Start: 12/03/22 16:51 Freq: Status: Active Protocol: Document 12/26/22 08:05 LRN (Rec: 12/26/22 08:48 LRN [id number]) Out-Patient Physical Therapy Visit Information Visit Information Visit Type Treatment Note Visit Start Time 08:05 Visit Stop Time 08:45 Total Visit Minutes 42 Visit Number Evaluation Information Evaluation Date 12/12/22 Precautions Precautions Biscuspid aortic valve being monitored every 6 months. , no children. Takes an anti-biotic after intercourse to prevent UTI's. PT-OP-B Current Condition Start: 12/03/22 16:51 Freq: Status: Active Protocol: Document 12/12/22 10:37 LRN (Rec: 12/12/22 11:22 LRN [id number]) Current Condition History of Current Condition Onset Date 1 year ago. Current Complaints Urinary leakage with an urge. History of Current Condition Pt reports she got metal balls to strengthen her PF but they would fall out. She has also noticed that with friends when she drinks wine, watching TV when she gets up to use the bathroom she has urinary leakage. She will wet her underwear if she waits too long. She has on her own cut expresso in the morning and has found it is helpful. She reports urinating 8-10 times a day and 1 time during the night. Prior Treatments and Tests Pt purchased on her own weighted vaginal balls for PF strengthening. She used them for couple of weeks in standing, did not try in supine. Treatment Goals Patient/Caregiver Goals Pt goal is 1) to look for strengthening help. To strengthen her pelvic floor muscles so on standing, after waiting too long, she has no urinary leakage. 2) Be placed on a HEP of PF strengthening exercises. Personal Factors Other Personal Factors That May Effect Active: Plays golf w/o use of Therapy/Recovery cart, walks dog 1-2 miles daily. Pt wanting to get back into lifting weights to improve UE strength; therefore plans to use home row machine and join a gym to start lifting weights. PT-OP-C Subjective Start: 12/03/22 16:51 Freq: Status: Active Protocol: Document 12/26/22 08:05 LRN (Rec: 12/26/22 08:48 LRN [id number]) OP-PT Subjective Patient Comments Patient Comments States she is trying to drink more fluids. PT-OP-I Pelvic Floor Start: 12/03/22 16:51 Freq: Status: Active Protocol: Document 12/12/22 10:37 LRN (Rec: 12/12/22 11:22 LRN [id number]) Pelvic Floor Assessment Urine Urinary Symptoms Urge Sensation Other Urinary Symptoms Spasm after urinating. Urine goes off to a side. Leakage Cause Urge Leaks Per Day 1 Nocturia 1 Pads Used In 24 Hours 0 Bowel Bowel Surgery No Other Bowel Symptoms Pt notes she is lactose intolerant and foods with a lot of fat causes diahrrea. Bowel Movement Frequency 1-2x/daily [place] Stool Chart Type 1-7 4 Prolapse Cystocele Grade 2 Urethrocele Grade 2 Prolapse Comments Uterine prolapse is present Perineal Descent Resting Absent Bearing Absent Contraction Ability Voluntary Contraction Weak Manual Muscle Testing Left 0 Manual Muscle Testing Right 0 Manual Muscle Testing Anterior 0 Manual Muscle Testing Posterior 2 Muscle Endurance (Seconds) 1 Number of Quick Contractions In 10 3 Seconds Comments Pelvic Floor Comments Pt external PF tissues are dry . Redness is present in the labia majora and on the inside at the vaginal entry. PF contraction is with moderate use of TA and visible gluteal but not significant. No contraction is felt with hip AD. PT-OP-J Posture/Palpation/Skin Start: 12/03/22 16:51 Freq: Status: Active Protocol: Document 12/12/22 10:37 LRN (Rec: 12/12/22 11:22 LRN [id number]) Posture Evaluation Position Standing Head/C-Spine Posture Forward Head L-Spine Posture Shifted Left Shoulder Posture (L) Elevated Scapula Posture (L) Elevated Pelvis Posture Anteriorly Tilted,(L) Iliac Crest Superior Comments Posture Comments Trunk lean to left PT-OP-K Range of Motion Start: 12/03/22 16:51 Freq: Status: Active Protocol: Document 12/12/22 10:37 LRN (Rec: 12/12/22 11:22 LRN [id number]) Lumbar Spine Range of Motion Lumbar Spine Active Degrees Testing Position Standing Flexion 72 Extension 15 Rotation Left 12 Rotation Right 10 Lateral Flexion Left 13 Lateral Flexion Right 15 ROM Limitations Soft Tissue Tightness Hip Goniometric Range of Motion Hip Right Passive Testing Position Supine Internal Rotation 40 External Rotation 45 Left Passive Testing Position Supine Internal Rotation 45 External Rotation 50 PT-OP-M Strength Start: 12/03/22 16:51 Freq: Status: Active Protocol: Document 12/12/22 10:37 LRN (Rec: 12/12/22 11:22 LRN [id number]) Trunk Strength Trunk Manual Muscle Testing Core Stabilization Loss of core stab with L hip flex and extension Hip Strength Hip Manual Muscle Testing Right Comments All strength is 5/5 Left Comments All strength is 5/5 PT-OP-Q Treatments Start: 12/03/22 16:51 Freq: Status: Active Protocol: Document 12/26/22 08:05 LRN (Rec: 12/26/22 08:48 LRN [id number]) Therapeutic Exercises Supine Exercises Kegels Supine Exercise Name Review of Kegels and doing in isolation of substitute ms. Wedge/PF contractions Supine Exercise Name WEdge/PF in isolation of substitute ms. Comments Much training and cuing to isolate PF. LE Roll in/out Supine Exercise Name LE Roll in/out Reps/Minutes 8' Comments V cuing for proper coordination of movement. Deep Breathing Supine Exercise Name Deep Breathing Equipment Used small straw Reps/Minutes 5' Comments Cuing to slow breath and full exhale Other Exercises Sup<>Sigt<>Stand Other Exercise Name Transfer with breath and PF contraction Comments Verbal and phys cuing needed for breath, PF contractions, & mvmt Self-Care/Home Management Treatment Education Other Education Discussed Bladder diary and noted pt's different fluid intake and timing of voiding with fluid intake. Reinforced it is okay to drink all types of fluids but to be aware of body's response to espresso, wine, fruit juices and to time walking dog and activities with knowledge of voiding schedule based on fluid type intake. Discussed slowly adding fluids to day to get body and bladder used to increased fluids. PT-OP-T Assessment and Plan Start: 12/03/22 16:51 Freq: Status: Active Protocol: Document 12/26/22 08:05 LRN (Rec: 12/26/22 08:48 LRN [id number]) Physical Therapy Assessment Goals Four Impairment Redness and tenderness at the [place] Short Term Goal (STG) Pt will be educated in proper vulvar/genital care. STG Duration 01/06/23 Three Impairment Decreased PF strength Short Term Goal (STG) Pt will be educated in urinary delay technique to be able to hold her urine in the presence of an urge until making it to a bathroom. 12/19/22: Bladder Irritants and Urge deference techinque. STG Duration 01/13/23 (12/19/22: MET GOAL) Skilled Nursing Goal (LTG) Improve PF strength with pt able to hold PF contraction for 8-10 secs in order to prevent urinary leakage with transfer sit<>sales systems engineer the presence of an urge. LTG Duration 02/24/23 Two Impairment Decreased hip and trunk mobility Impairment Hip PROM (in deg's): IR: 40 R , 45 L; ER 45 R, 50 L. Lumbar AROM (in deg's): Flex 72, Ext 10, lateral flex 13 L, 15 R. Short Term Goal (STG) Pt will be educated in hip ( rotators, iliopsoas) and trunk (hamstring) mobility ex's to improve mobility and posture with proper core abdominal pressures during exercise and be able to exercise at her local gym w/o urinary leakage. STG Duration 01/13/23 Skilled Nursing Goal (LTG) Improve hip mobility with pt able to perform Quick contractions in order to prevent urinary leakage in the presence of a strong urge. LTG Duration 02/24/23 One Impairment Pt lacks an independent self care HEP. Short Term Goal (STG) Pt educated in proper transfers to lessen core abdominal pressure. 12/12/22: Pt educated in proper transfer stand<>sit<> supine with initial education in lessening core abdominal pressure. 12/19/22: Pt educated in proper transfer sup<>sit<>stand coordinating breath work and PF contractions. STG Duration 12/23/22 (12/19/22: MET GOAL) Skilled Nursing Goal (LTG) Pt will be independent in a self care HEP for PF strengthening. 12/26/22: HEP: Kegels, hips on pillows in abscence of substitute muscles. LTG Duration 02/24/23 progressed 12/26/22 Progress Towards Goals Progress Comments Progressed HEP. Assessment Summary Assessment Deep breathing is still fast, movement of diaphragm vs chest is much improved, but requires pt to have self cuing of hands placed on chest and abdomen. Pt very receptive to education for reasons of hip elevation for PF exercises Physical Therapy Plan Frequency and Duration Frequency of Treatment 1x/Week Plan of Care Start Date 12/12/22 Plan of Care End Date 02/24/23 Next Visit Focus/Plan Next Note Type Treatment Note Next Visit Plan Education in vulvar/genital care and body mechanics. Add hip mobility ex's to HEP. EMG Biofeedback and for PF contraction awareness training . Assess abdominal soft tissue ( bladder) mobility. Ex/HEP: Improve hip mobility, PF/core stabilization strengthening.
--- NOTE | 2023-01-02 17:32 | PT.OTN ---
Current Diagnoses Stiffness of right hip, not elsewhere classified (01/02/23) Stiffness of left hip, not elsewhere classified (01/02/23) Muscle weakness (generalized) (01/02/23) Overactive bladder (01/02/23) Urinary tract infection, site not specified (01/02/23) Physical Therapy Treatment Note PT-OP-A Visit Information Start: 12/03/22 16:51 Freq: Status: Active Protocol: Document 01/02/23 08:50 LRN (Rec: 01/02/23 09:31 LRN [id number]) Out-Patient Physical Therapy Visit Information Visit Information Visit Type Treatment Note Visit Start Time 08:50 Visit Stop Time 09:29 Total Visit Minutes 39 Visit Number Evaluation Information Evaluation Date 12/12/22 Precautions Precautions Biscuspid aortic valve being monitored every 6 months. , no children. Takes an anti-biotic after intercourse to prevent UTI's. PT-OP-B Current Condition Start: 12/03/22 16:51 Freq: Status: Active Protocol: Document 12/12/22 10:37 LRN (Rec: 12/12/22 11:22 LRN [id number]) Current Condition History of Current Condition Onset Date 1 year ago. Current Complaints Urinary leakage with an urge. History of Current Condition Pt reports she got metal balls to strengthen her PF but they would fall out. She has also noticed that with friends when she drinks wine, watching TV when she gets up to use the bathroom she has urinary leakage. She will wet her underwear if she waits too long. She has on her own cut expresso in the morning and has found it is helpful. She reports urinating 8-10 times a day and 1 time during the night. Prior Treatments and Tests Pt purchased on her own weighted vaginal balls for PF strengthening. She used them for couple of weeks in standing, did not try in supine. Treatment Goals Patient/Caregiver Goals Pt goal is 1) to look for strengthening help. To strengthen her pelvic floor muscles so on standing, after waiting too long, she has no urinary leakage. 2) Be placed on a HEP of PF strengthening exercises. Personal Factors Other Personal Factors That May Effect Active: Plays golf w/o use of Therapy/Recovery cart, walks dog 1-2 miles daily. Pt wanting to get back into lifting weights to improve UE strength; therefore plans to use home row machine and join a gym to start lifting weights. PT-OP-C Subjective Start: 12/03/22 16:51 Freq: Status: Active Protocol: Document 01/02/23 08:50 LRN (Rec: 01/02/23 09:31 LRN [id number]) OP-PT Subjective Patient Comments Patient Comments She has been waiting to void to extend times between voids. PT-OP-I Pelvic Floor Start: 12/03/22 16:51 Freq: Status: Active Protocol: Document 12/12/22 10:37 LRN (Rec: 12/12/22 11:22 LRN [id number]) Pelvic Floor Assessment Urine Urinary Symptoms Urge Sensation Other Urinary Symptoms Spasm after urinating. Urine goes off to a side. Leakage Cause Urge Leaks Per Day 1 Nocturia 1 Pads Used In 24 Hours 0 Bowel Bowel Surgery No Other Bowel Symptoms Pt notes she is lactose intolerant and foods with a lot of fat causes diahrrea. Bowel Movement Frequency 1-2x/daily [place] Stool Chart Type 1-7 4 Prolapse Cystocele Grade 2 Urethrocele Grade 2 Prolapse Comments Uterine prolapse is present Perineal Descent Resting Absent Bearing Absent Contraction Ability Voluntary Contraction Weak Manual Muscle Testing Left 0 Manual Muscle Testing Right 0 Manual Muscle Testing Anterior 0 Manual Muscle Testing Posterior 2 Muscle Endurance (Seconds) 1 Number of Quick Contractions In 10 3 Seconds Comments Pelvic Floor Comments Pt external PF tissues are dry . Redness is present in the labia majora and on the inside at the vaginal entry. PF contraction is with moderate use of TA and visible gluteal but not significant. No contraction is felt with hip AD. PT-OP-J Posture/Palpation/Skin Start: 12/03/22 16:51 Freq: Status: Active Protocol: Document 12/12/22 10:37 LRN (Rec: 12/12/22 11:22 LRN [id number]) Posture Evaluation Position Standing Head/C-Spine Posture Forward Head L-Spine Posture Shifted Left Shoulder Posture (L) Elevated Scapula Posture (L) Elevated Pelvis Posture Anteriorly Tilted,(L) Iliac Crest Superior Comments Posture Comments Trunk lean to left PT-OP-K Range of Motion Start: 12/03/22 16:51 Freq: Status: Active Protocol: Document 12/12/22 10:37 LRN (Rec: 12/12/22 11:22 LRN [id number]) Lumbar Spine Range of Motion Lumbar Spine Active Degrees Testing Position Standing Flexion 72 Extension 15 Rotation Left 12 Rotation Right 10 Lateral Flexion Left 13 Lateral Flexion Right 15 ROM Limitations Soft Tissue Tightness Hip Goniometric Range of Motion Hip Right Passive Testing Position Supine Internal Rotation 40 External Rotation 45 Left Passive Testing Position Supine Internal Rotation 45 External Rotation 50 PT-OP-M Strength Start: 12/03/22 16:51 Freq: Status: Active Protocol: Document 12/12/22 10:37 LRN (Rec: 12/12/22 11:22 LRN [id number]) Trunk Strength Trunk Manual Muscle Testing Core Stabilization Loss of core stab with L hip flex and extension Hip Strength Hip Manual Muscle Testing Right Comments All strength is 5/5 Left Comments All strength is 5/5 PT-OP-Q Treatments Start: 12/03/22 16:51 Freq: Status: Active Protocol: Document 01/02/23 08:50 LRN (Rec: 01/02/23 09:31 LRN [id number]) Therapeutic Exercises Supine Exercises Iliopsoas stretch Supine Exercise Name Iliopsoas stretch Side right Comments V cuing to not stretch into pain. Fig 4 stretch Supine Exercise Name Fig 4 stretch added to HEP Side bilateral Reps/Minutes 60 SH x 1, R>L Comments Cuing for holding comfortable stretch DKTC Supine Exercise Name DKTC stretch added to HEP Reps/Minutes 10SH x 6 Comments Cued for gentle stretch LE Roll in/out Supine Exercise Name Wedge/LE Roll in/out Reps/Minutes 10' Comments V cuing for proper coordination of movement. Deep Breathing Supine Exercise Name Deep Breathing Equipment Used small straw Reps/Minutes 6' Comments Cuing to slow breath and full exhale Standing Exercises SB trunk stretch Standing Exercise Name SB stretch - added to HEP Side bilateral Reps/Minutes 10 SH Comments Pt thinks R SB is more limiting. Self-Care/Home Management Treatment Education Patient Education Home Exercise Program Other Education Discussed pt to obtain a schedule of a normal voiding day. Discussed and educated pt in use of delay technique to increase time between voids for short periods at a time and to discontinue holding voiding. Activities Self-Care/Home Management Activities Issued & reviewed HEP: Hip stretches: Fig 4 & Iliopsoas stretch; DKTC stretch and standing trunk SB stretch. PT-OP-T Assessment and Plan Start: 12/03/22 16:51 Freq: Status: Active Protocol: Document 01/02/23 08:50 LRN (Rec: 01/02/23 09:31 LRN [id number]) Physical Therapy Assessment Goals Four Impairment Redness and tenderness at the [place] Short Term Goal (STG) Pt will be educated in proper vulvar/genital care. STG Duration 01/06/23 Three Impairment Decreased PF strength Short Term Goal (STG) Pt will be educated in urinary delay technique to be able to hold her urine in the presence of an urge until making it to a bathroom. 12/19/22: Bladder Irritants and Urge deference techinque. 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 LTG Duration 02/24/23 Two Impairment Decreased hip and trunk mobility Impairment Hip PROM (in deg's): IR: 40 R , 45 L; ER 45 R, 50 L. Lumbar AROM (in deg's): Flex 72, Ext 10, lateral flex 13 L, 15 R. Short Term Goal (STG) Pt will be educated in hip ( rotators, iliopsoas) and trunk (hamstring) mobility ex's to improve mobility and posture with proper core abdominal pressures during exercise and be able to exercise at her local gym w/o urinary leakage. 01/02/23: HEP: Hip ER/ Iliopsoas stretch, DKTC and standing trunk SB stretch. STG Duration 01/13/23 progressed 01/02/23 w/hip stretches. Sales Support Advisor Goal (LTG) Improve hip mobility with pt able to perform Quick contractions in order to prevent urinary leakage in the presence of a strong urge. LTG Duration 02/24/23 One Impairment Pt lacks an independent self care HEP. Short Term Goal (STG) Pt educated in proper transfers to lessen core abdominal pressure. 12/12/22: Pt educated in proper transfer stand<>sit<> supine with initial education in lessening core abdominal pressure. 12/19/22: Pt educated in proper transfer sup<>sit<>stand coordinating breath work and PF contractions. STG Duration 12/23/22 (12/19/22: MET GOAL) Sales Support Advisor Goal (LTG) Pt will be independent in a self care HEP for PF strengthening. 12/26/22: HEP: Kegels, hips on pillows in abscence of substitute muscles. LTG Duration 02/24/23 progressed 12/26/22 Assessment Summary Assessment Pt with stress incontinence per bladder diary. Her deep breathing is now with 5 sec in breaths, 25% chest breathing. Pt needed extra time with ex 's today to practice and perform ex's properly. Pt took extra time with PF contractions with LE roll in/ outs to properly coordinate with PF contractions to breathing and leg roll in/outs . Physical Therapy Plan Frequency and Duration Frequency of Treatment 1x/Week Plan of Care Start Date 12/12/22 Plan of Care End Date 02/24/23 Next Visit Focus/Plan Next Note Type Treatment Note Next Visit Plan Education in vulvar/genital care and body mechanics. Add trunk (hamstring) mobility ex to HEP and posture with proper core abdominal pressures during exercise with goal of pt able to exercise at her local gym w/o urinary leakage. EMG Biofeedback and for PF contraction awareness training . Assess abdominal soft tissue ( bladder) mobility. Ex/HEP: Improve hip mobility, PF/core stabilization strengthening.
--- NOTE | 2023-01-09 16:59 | PT.OTN ---
Current Diagnoses Stiffness of right hip, not elsewhere classified (01/09/23) Stiffness of left hip, not elsewhere classified (01/09/23) Muscle weakness (generalized) (01/09/23) Overactive bladder (01/09/23) Urinary tract infection, site not specified (01/09/23) Physical Therapy Treatment Note PT-OP-A Visit Information Start: 12/03/22 16:51 Freq: Status: Active Protocol: Document 01/09/23 08:52 LRN (Rec: 01/09/23 09:31 LRN [id number]) Out-Patient Physical Therapy Visit Information Visit Information Visit Type Treatment Note Visit Start Time 08:52 Visit Stop Time 10:30 Total Visit Minutes 38 Visit Number Evaluation Information Evaluation Date 12/12/22 Precautions Precautions Biscuspid aortic valve being monitored every 6 months. , no children. Takes an anti-biotic after intercourse to prevent UTI's. PT-OP-B Current Condition Start: 12/03/22 16:51 Freq: Status: Active Protocol: Document 12/12/22 10:37 LRN (Rec: 12/12/22 11:22 LRN [id number]) Current Condition History of Current Condition Onset Date 1 year ago. Current Complaints Urinary leakage with an urge. History of Current Condition Pt reports she got metal balls to strengthen her PF but they would fall out. She has also noticed that with friends when she drinks wine, watching TV when she gets up to use the bathroom she has urinary leakage. She will wet her underwear if she waits too long. She has on her own cut expresso in the morning and has found it is helpful. She reports urinating 8-10 times a day and 1 time during the night. Prior Treatments and Tests Pt purchased on her own weighted vaginal balls for PF strengthening. She used them for couple of weeks in standing, did not try in supine. Treatment Goals Patient/Caregiver Goals Pt goal is 1) to look for strengthening help. To strengthen her pelvic floor muscles so on standing, after waiting too long, she has no urinary leakage. 2) Be placed on a HEP of PF strengthening exercises. Personal Factors Other Personal Factors That May Effect Active: Plays golf w/o use of Therapy/Recovery cart, walks dog 1-2 miles daily. Pt wanting to get back into lifting weights to improve UE strength; therefore plans to use home row machine and join a gym to start lifting weights. PT-OP-C Subjective Start: 12/03/22 16:51 Freq: Status: Active Protocol: Document 01/09/23 08:52 LRN (Rec: 01/09/23 09:31 LRN [id number]) OP-PT Subjective Patient Comments Patient Comments Same can't get past 8 cups of water. Finds delay technique is helpful. Thinks she needs to time activities. PT-OP-I Pelvic Floor Start: 12/03/22 16:51 Freq: Status: Active Protocol: Document 12/12/22 10:37 LRN (Rec: 12/12/22 11:22 LRN [id number]) Pelvic Floor Assessment Urine Urinary Symptoms Urge Sensation Other Urinary Symptoms Spasm after urinating. Urine goes off to a side. Leakage Cause Urge Leaks Per Day 1 Nocturia 1 Pads Used In 24 Hours 0 Bowel Bowel Surgery No Other Bowel Symptoms Pt notes she is lactose intolerant and foods with a lot of fat causes diahrrea. Bowel Movement Frequency 1-2x/daily [place] Stool Chart Type 1-7 4 Prolapse Cystocele Grade 2 Urethrocele Grade 2 Prolapse Comments Uterine prolapse is present Perineal Descent Resting Absent Bearing Absent Contraction Ability Voluntary Contraction Weak Manual Muscle Testing Left 0 Manual Muscle Testing Right 0 Manual Muscle Testing Anterior 0 Manual Muscle Testing Posterior 2 Muscle Endurance (Seconds) 1 Number of Quick Contractions In 10 3 Seconds Comments Pelvic Floor Comments Pt external PF tissues are dry . Redness is present in the labia majora and on the inside at the vaginal entry. PF contraction is with moderate use of TA and visible gluteal but not significant. No contraction is felt with hip AD. PT-OP-J Posture/Palpation/Skin Start: 12/03/22 16:51 Freq: Status: Active Protocol: Document 12/12/22 10:37 LRN (Rec: 12/12/22 11:22 LRN [id number]) Posture Evaluation Position Standing Head/C-Spine Posture Forward Head L-Spine Posture Shifted Left Shoulder Posture (L) Elevated Scapula Posture (L) Elevated Pelvis Posture Anteriorly Tilted,(L) Iliac Crest Superior Comments Posture Comments Trunk lean to left PT-OP-K Range of Motion Start: 12/03/22 16:51 Freq: Status: Active Protocol: Document 12/12/22 10:37 LRN (Rec: 12/12/22 11:22 LRN [id number]) Lumbar Spine Range of Motion Lumbar Spine Active Degrees Testing Position Standing Flexion 72 Extension 15 Rotation Left 12 Rotation Right 10 Lateral Flexion Left 13 Lateral Flexion Right 15 ROM Limitations Soft Tissue Tightness Hip Goniometric Range of Motion Hip Right Passive Testing Position Supine Internal Rotation 40 External Rotation 45 Left Passive Testing Position Supine Internal Rotation 45 External Rotation 50 PT-OP-M Strength Start: 12/03/22 16:51 Freq: Status: Active Protocol: Document 12/12/22 10:37 LRN (Rec: 12/12/22 11:22 LRN [id number]) Trunk Strength Trunk Manual Muscle Testing Core Stabilization Loss of core stab with L hip flex and extension Hip Strength Hip Manual Muscle Testing Right Comments All strength is 5/5 Left Comments All strength is 5/5 PT-OP-Q Treatments Start: 12/03/22 16:51 Freq: Status: Active Protocol: Document 01/09/23 08:52 LRN (Rec: 01/09/23 09:31 LRN [id number]) Therapeutic Exercises Supine Exercises Hamstring/LE neural stretch Supine Exercise Name Hamstring/LE neural stretch ( 10 x each: ankle p, breathing, hold stretch) Side bilateral Reps/Minutes 4' Comments Extra time needed to determine max raisa stretch PF/LE Roll in/out Supine Exercise Name PF w/Roll in/out Side bilateral Reps/Minutes 10x Comments Extra time for coordinating exer w/PF contraction, v cuing needed. Fig 4 stretch Supine Exercise Name Fig 4 stretch added to HEP Side bilateral Reps/Minutes 60 SH x 1, R>L Comments Cuing for holding comfortable stretch DKTC Supine Exercise Name DKTC stretch added to HEP Reps/Minutes 10SH x 6 Comments Cued for gentle stretch Kegels Supine Exercise Name Review of Kegels and doing in isolation of substitute ms. Wedge/PF contractions Supine Exercise Name WEdge/PF in isolation of substitute ms. Comments Much training and cuing to isolate PF. LE Roll in/out Supine Exercise Name Wedge/LE Roll in/out Reps/Minutes 10' Comments V cuing for proper coordination of movement. Self-Care/Home Management Treatment Education Other Education Discussed & educated in proper vulvar/genital care with review of most important concepts. Activities Self-Care/Home Management Activities Issued & reviewed HEP: Hamstring/LE neural stretch PT-OP-T Assessment and Plan Start: 12/03/22 16:51 Freq: Status: Active Protocol: Document 01/09/23 08:52 LRN (Rec: 01/09/23 09:31 LRN [id number]) Physical Therapy Assessment Goals Four Impairment Redness and tenderness at the [place] Short Term Goal (STG) Pt will be educated in proper vulvar/genital care. STG Duration 01/06/23 (01/09/23: MET GOAL) Three Impairment Decreased PF strength Short Term Goal (STG) Pt will be educated in urinary delay technique to be able to hold her urine in the presence of an urge until making it to a bathroom. 12/19/22: Bladder Irritants and Urge deference techinque. 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 01/09/23: One day in past week , was doing a lot of gardening . LTG Duration 02/24/23 progressed 01/09/23 Two Impairment Decreased hip and trunk mobility Impairment Hip PROM (in deg's): IR: 40 R , 45 L; ER 45 R, 50 L. Lumbar AROM (in deg's): Flex 72, Ext 10, lateral flex 13 L, 15 R. Short Term Goal (STG) Pt will be educated in hip ( rotators, iliopsoas) and trunk (hamstring) mobility ex's to improve mobility and posture with proper core abdominal pressures during exercise and be able to exercise at her local gym w/o urinary leakage. 01/02/23: HEP: Hip ER/ Iliopsoas stretch, DKTC and standing trunk SB stretch. 01/09/23: HEP: Hamstring/LE neural stretch STG Duration 01/13/23 completed hip/ trunk stretches 01/09/23. Optical Design Engineer Goal (LTG) Improve hip mobility with pt able to perform Quick contractions in order to prevent urinary leakage in the presence of a strong urge. LTG Duration 02/24/23 One Impairment Pt lacks an independent self care HEP. Short Term Goal (STG) Pt educated in proper transfers to lessen core abdominal pressure. 12/12/22: Pt educated in proper transfer stand<>sit<> supine with initial education in lessening core abdominal pressure. 12/19/22: Pt educated in proper transfer sup<>sit<>stand coordinating breath work and PF contractions. STG Duration 12/23/22 (12/19/22: MET GOAL) Halfway Goal (LTG) Pt will be independent in a self care HEP for PF strengthening. 12/26/22: HEP: Kegels, hips on pillows in abscence of substitute muscles. LTG Duration 02/24/23 progressed 12/26/22 Assessment Summary Assessment Pt able to perform Kegel in isolation of hip AD/Gluts, but abdominal contraction is noted. Pt was receptive to genital hygiene care education . LE roll in/outs is good w/ coordination of breath. Physical Therapy Plan Frequency and Duration Frequency of Treatment 1x/Week Plan of Care Start Date 12/12/22 Plan of Care End Date 02/24/23 Next Visit Focus/Plan Next Note Type Treatment Note Next Visit Plan Review hamstring/LB stretch for isolated Kegel and coordination of PF w/LE roll in/outs & add EMG Biofeedback and for PF contraction awareness training. Add trunk posture with proper core abdominal pressures during exercise with goal of pt able to exercise at her local gym w/o urinary leakage. Assess abdominal soft tissue ( bladder) mobility. Ex/HEP: Improve hip mobility, PF/core stabilization strengthening.
--- NOTE | 2023-01-20 16:41 | PT.OTN ---
Current Diagnoses Stiffness of right hip, not elsewhere classified (01/20/23) Stiffness of left hip, not elsewhere classified (01/20/23) Muscle weakness (generalized) (01/20/23) Overactive bladder (01/20/23) Urinary tract infection, site not specified (01/20/23) Physical Therapy Treatment Note PT-OP-A Visit Information Start: 12/03/22 16:51 Freq: Status: Active Protocol: Document 01/20/23 10:32 LRN (Rec: 01/20/23 11:19 LRN [id number]) Out-Patient Physical Therapy Visit Information Visit Information Visit Type Treatment Note Visit Start Time 10:32 Visit Stop Time 11:18 Total Visit Minutes 46 Visit Number Evaluation Information Evaluation Date 12/12/22 Precautions Precautions Biscuspid aortic valve being monitored every 6 months. , no children. Takes an anti-biotic after intercourse to prevent UTI's. PT-OP-B Current Condition Start: 12/03/22 16:51 Freq: Status: Active Protocol: Document 12/12/22 10:37 LRN (Rec: 12/12/22 11:22 LRN [id number]) Current Condition History of Current Condition Onset Date 1 year ago. Current Complaints Urinary leakage with an urge. History of Current Condition Pt reports she got metal balls to strengthen her PF but they would fall out. She has also noticed that with friends when she drinks wine, watching TV when she gets up to use the bathroom she has urinary leakage. She will wet her underwear if she waits too long. She has on her own cut expresso in the morning and has found it is helpful. She reports urinating 8-10 times a day and 1 time during the night. Prior Treatments and Tests Pt purchased on her own weighted vaginal balls for PF strengthening. She used them for couple of weeks in standing, did not try in supine. Treatment Goals Patient/Caregiver Goals Pt goal is 1) to look for strengthening help. To strengthen her pelvic floor muscles so on standing, after waiting too long, she has no urinary leakage. 2) Be placed on a HEP of PF strengthening exercises. Personal Factors Other Personal Factors That May Effect Active: Plays golf w/o use of Therapy/Recovery cart, walks dog 1-2 miles daily. Pt wanting to get back into lifting weights to improve UE strength; therefore plans to use home row machine and join a gym to start lifting weights. PT-OP-C Subjective Start: 12/03/22 16:51 Freq: Status: Active Protocol: Document 01/20/23 10:32 LRN (Rec: 01/20/23 11:19 LRN [id number]) OP-PT Subjective Patient Comments Patient Comments Planning ahead so there is no leakage; therefore has not leaked this past week. Mostly increased frequency after drinking espresso in the morning. Has been more mindful of going to bathroom when needed. Drinking 8 glasses of fluid a day. PT-OP-I Pelvic Floor Start: 12/03/22 16:51 Freq: Status: Active Protocol: Document 01/20/23 10:32 LRN (Rec: 01/20/23 11:19 LRN [id number]) Pelvic Floor Assessment SEMG (uV) Baseline 28 Quick Contraction 6.1 Recruitment Pattern Good Relaxation Good Holding Fair Stability of Hold Poor/Slow SEMG Stability of Rest Good Comments Pelvic Floor Comments 10 reps: Quick: Avg rest is 2.5. Pt loss of strength after first contraction. Long Hold: Avg rest is uV's NOTE: Pt breath holding during first few contractions. PT-OP-J Posture/Palpation/Skin Start: 12/03/22 16:51 Freq: Status: Active Protocol: Document 12/12/22 10:37 LRN (Rec: 12/12/22 11:22 LRN [id number]) Posture Evaluation Position Standing Head/C-Spine Posture Forward Head L-Spine Posture Shifted Left Shoulder Posture (L) Elevated Scapula Posture (L) Elevated Pelvis Posture Anteriorly Tilted,(L) Iliac Crest Superior Comments Posture Comments Trunk lean to left PT-OP-K Range of Motion Start: 12/03/22 16:51 Freq: Status: Active Protocol: Document 12/12/22 10:37 LRN (Rec: 12/12/22 11:22 LRN [id number]) Lumbar Spine Range of Motion Lumbar Spine Active Degrees Testing Position Standing Flexion 72 Extension 15 Rotation Left 12 Rotation Right 10 Lateral Flexion Left 13 Lateral Flexion Right 15 ROM Limitations Soft Tissue Tightness Hip Goniometric Range of Motion Hip Right Passive Testing Position Supine Internal Rotation 40 External Rotation 45 Left Passive Testing Position Supine Internal Rotation 45 External Rotation 50 PT-OP-M Strength Start: 12/03/22 16:51 Freq: Status: Active Protocol: Document 12/12/22 10:37 LRN (Rec: 12/12/22 11:22 LRN [id number]) Trunk Strength Trunk Manual Muscle Testing Core Stabilization Loss of core stab with L hip flex and extension Hip Strength Hip Manual Muscle Testing Right Comments All strength is 5/5 Left Comments All strength is 5/5 PT-OP-Q Treatments Start: 12/03/22 16:51 Freq: Status: Active Protocol: Document 01/20/23 10:32 LRN (Rec: 01/20/23 11:19 LRN [id number]) Therapeutic Exercises Supine Exercises PF Long Holds Supine Exercise Name Long Holds Reps/Minutes 10 SH x 10 Comments Avg max 5.4 uV's, Avg rest 1. 2 uV's PF Quick Flicks Supine Exercise Name Quick Flicks Reps/Minutes 10x Comments Avg max 6.1 uV's, Avg rest 2. 5 uV's Resting tone Supine Exercise Name Resting tone assessed Equipment Used Vag electrode Reps/Minutes x 2 Comments Initially very high, after readjustments of electrode, PF tone very low Hamstring/LE neural stretch Supine Exercise Name Hamstring/LE neural stretch ( 10 x each: ankle p, breathing, hold stretch) Side bilateral Reps/Minutes 5' (3 cycles of stretch>ankle pumps) each leg. Comments Extra time for training of best possible stretch PF/LE Roll in/out Supine Exercise Name PF w/Roll in/out w/breathing Side bilateral Reps/Minutes 10x Comments Extra time for coordinating exer w/PF contraction, phys cuing needed. DKTC Supine Exercise Name DKTC stretch added to HEP Reps/Minutes 10SH x 6 Comments Cued for gentle stretch Kegels Supine Exercise Name Quick and long holds Reps/Minutes 10x each Neuro Re-Education Treatment Other Activities PF awareness Details Relaxation training of PF Reps/Duration 5' Comments Pt's PF did not relax with deep breathing, atmosphere calming. Adjusted vaginal electrode and PF tone decreased to a low level and relaxation training was dc'd. PT-OP-T Assessment and Plan Start: 12/03/22 16:51 Freq: Status: Active Protocol: Document 01/20/23 10:32 LRN (Rec: 01/20/23 11:19 LRN [id number]) Physical Therapy Assessment Goals Four Impairment Redness and tenderness at the [place] Short Term Goal (STG) Pt will be educated in proper vulvar/genital care. STG Duration 01/06/23 (01/09/23: MET GOAL) Three Impairment Decreased PF strength Short Term Goal (STG) Pt will be educated in urinary delay technique to be able to hold her urine in the presence of an urge until making it to a bathroom. 12/19/22: Bladder Irritants and Urge deference techinque. 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 01/09/23: One day in past week , was doing a lot of gardening . LTG Duration 02/24/23 progressed 01/09/23 Two Impairment Decreased hip and trunk mobility Impairment Hip PROM (in deg's): IR: 40 R , 45 L; ER 45 R, 50 L. Lumbar AROM (in deg's): Flex 72, Ext 10, lateral flex 13 L, 15 R. Short Term Goal (STG) Pt will be educated in hip ( rotators, iliopsoas) and trunk (hamstring) mobility ex's to improve mobility and posture with proper core abdominal pressures during exercise and be able to exercise at her local gym w/o urinary leakage. 01/02/23: HEP: Hip ER/ Iliopsoas stretch, DKTC and standing trunk SB stretch. 01/09/23: HEP: Hamstring/LE neural stretch STG Duration 01/13/23 completed hip/ trunk stretches 01/09/23. [employer] Staff Nurse Goal (LTG) Improve hip mobility with pt able to perform Quick contractions in order to prevent urinary leakage in the presence of a strong urge. LTG Duration 02/24/23 One Impairment Pt lacks an independent self care HEP. Short Term Goal (STG) Pt educated in proper transfers to lessen core abdominal pressure. 12/12/22: Pt educated in proper transfer stand<>sit<> supine with initial education in lessening core abdominal pressure. 12/19/22: Pt educated in proper transfer sup<>sit<>stand coordinating breath work and PF contractions. STG Duration 12/23/22 (12/19/22: MET GOAL) Group Home Goal (LTG) Pt will be independent in a self care HEP for PF strengthening. 12/26/22: HEP: Kegels, hips on pillows in abscence of substitute muscles. LTG Duration 02/24/23 progressed 12/26/22 Assessment Summary Assessment Pt needed revlew of LE hamstring/neural stretch for hold time of 3 reps of ankle pump cycles. She is doing well with coordination of Kegel with breath during transfers. Initially concern was a high PF resting tone, but after adjustment of vaginal electrode, it was noted that pt has PF weakness, poor holding stability; therefore PF strengthening is needed long holds>quick flicks , although quick flicks are weak. Physical Therapy Plan Frequency and Duration Frequency of Treatment 1x/Week Plan of Care Start Date 12/12/22 Plan of Care End Date 02/24/23 Next Visit Focus/Plan Next Note Type Treatment Note Next Visit Plan PF contraction awareness training with PF Estim. Add trunk posture with proper core abdominal pressures during exercise with goal of pt able to exercise at her local gym w/o urinary leakage. Assess abdominal soft tissue ( bladder) mobility. Ex/HEP: Improve hip mobility, PF/core stabilization strengthening.
--- NOTE | 2023-01-30 17:51 | PT.OTN ---
Current Diagnoses Stiffness of right hip, not elsewhere classified (01/30/23) Stiffness of left hip, not elsewhere classified (01/30/23) Muscle weakness (generalized) (01/30/23) Overactive bladder (01/30/23) Urinary tract infection, site not specified (01/30/23) Physical Therapy Treatment Note PT-OP-A Visit Information Start: 12/03/22 16:51 Freq: Status: Active Protocol: Document 01/30/23 11:23 LRN (Rec: 01/30/23 12:07 LRN [id number]) Out-Patient Physical Therapy Visit Information Visit Information Visit Type Treatment Note Visit Start Time 11:23 Visit Stop Time 12:05 Total Visit Minutes 42 Visit Number Evaluation Information Evaluation Date 12/12/22 Precautions Precautions Biscuspid aortic valve being monitored every 6 months. , no children. Takes an anti-biotic after intercourse to prevent UTI's. PT-OP-B Current Condition Start: 12/03/22 16:51 Freq: Status: Active Protocol: Document 12/12/22 10:37 LRN (Rec: 12/12/22 11:22 LRN [id number]) Current Condition History of Current Condition Onset Date 1 year ago. Current Complaints Urinary leakage with an urge. History of Current Condition Pt reports she got metal balls to strengthen her PF but they would fall out. She has also noticed that with friends when she drinks wine, watching TV when she gets up to use the bathroom she has urinary leakage. She will wet her underwear if she waits too long. She has on her own cut expresso in the morning and has found it is helpful. She reports urinating 8-10 times a day and 1 time during the night. Prior Treatments and Tests Pt purchased on her own weighted vaginal balls for PF strengthening. She used them for couple of weeks in standing, did not try in supine. Treatment Goals Patient/Caregiver Goals Pt goal is 1) to look for strengthening help. To strengthen her pelvic floor muscles so on standing, after waiting too long, she has no urinary leakage. 2) Be placed on a HEP of PF strengthening exercises. Personal Factors Other Personal Factors That May Effect Active: Plays golf w/o use of Therapy/Recovery cart, walks dog 1-2 miles daily. Pt wanting to get back into lifting weights to improve UE strength; therefore plans to use home row machine and join a gym to start lifting weights. PT-OP-C Subjective Start: 12/03/22 16:51 Freq: Status: Active Protocol: Document 01/30/23 11:23 LRN (Rec: 01/30/23 12:07 LRN [id number]) OP-PT Subjective Patient Comments Patient Comments No change. PT-OP-I Pelvic Floor Start: 12/03/22 16:51 Freq: Status: Active Protocol: Document 01/30/23 11:23 LRN (Rec: 01/30/23 12:07 LRN [id number]) Pelvic Floor Assessment SEMG (uV) Baseline 0.3 Quick Contraction 7.5 Recruitment Pattern Good Relaxation Good Holding Fair Stability of Hold Poor/Slow SEMG Stability of Rest Good PT-OP-J Posture/Palpation/Skin Start: 12/03/22 16:51 Freq: Status: Active Protocol: Document 12/12/22 10:37 LRN (Rec: 12/12/22 11:22 LRN [id number]) Posture Evaluation Position Standing Head/C-Spine Posture Forward Head L-Spine Posture Shifted Left Shoulder Posture (L) Elevated Scapula Posture (L) Elevated Pelvis Posture Anteriorly Tilted,(L) Iliac Crest Superior Comments Posture Comments Trunk lean to left PT-OP-K Range of Motion Start: 12/03/22 16:51 Freq: Status: Active Protocol: Document 12/12/22 10:37 LRN (Rec: 12/12/22 11:22 LRN [id number]) Lumbar Spine Range of Motion Lumbar Spine Active Degrees Testing Position Standing Flexion 72 Extension 15 Rotation Left 12 Rotation Right 10 Lateral Flexion Left 13 Lateral Flexion Right 15 ROM Limitations Soft Tissue Tightness Hip Goniometric Range of Motion Hip Right Passive Testing Position Supine Internal Rotation 40 External Rotation 45 Left Passive Testing Position Supine Internal Rotation 45 External Rotation 50 PT-OP-M Strength Start: 12/03/22 16:51 Freq: Status: Active Protocol: Document 12/12/22 10:37 LRN (Rec: 12/12/22 11:22 LRN [id number]) Trunk Strength Trunk Manual Muscle Testing Core Stabilization Loss of core stab with L hip flex and extension Hip Strength Hip Manual Muscle Testing Right Comments All strength is 5/5 Left Comments All strength is 5/5 PT-OP-Q Treatments Start: 12/03/22 16:51 Freq: Status: Active Protocol: Document 01/30/23 11:23 LRN (Rec: 01/30/23 12:07 LRN [id number]) Therapeutic Exercises Supine Exercises PF Long Holds Supine Exercise Name Long Holds - pt got confused as when to contract for 2 reps . Reps/Minutes 20' Rest needed btn bouts of contractions. Comments Avg max 3.8 uV's, Avg rest 1. 6 uV's - pt contracted when supposed to rest. PF Quick Flicks Supine Exercise Name Quick Flicks Reps/Minutes 10x 2, extra time needed for timing of contractions Comments Avg max 7.5 uV's, Avg rest 2. 5 uV's Resting tone Supine Exercise Name Resting tone assessed Equipment Used Vag electrode Reps/Minutes x 2 Comments Initially very high,after normalizing electrode placement, PF tone very low Neuro Re-Education Treatment Other Activities PF awareness Details PF contraction awareness training with EStim Reps/Duration 14' Comments Extra time needed to determine max tolerance to EStim with very gradual increase in stim to get PF contraction. Cuing needed for breathing through contractions. PT-OP-T Assessment and Plan Start: 12/03/22 16:51 Freq: Status: Active Protocol: Document 01/30/23 11:23 LRN (Rec: 01/30/23 12:07 LRN [id number]) Physical Therapy Assessment Goals Three Impairment Decreased PF strength Short Term Goal (STG) Pt will be educated in urinary delay technique to be able to hold her urine in the presence of an urge until making it to a bathroom. 12/19/22: Bladder Irritants and Urge deference techinque. 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 01/09/23: One day in past week , was doing a lot of gardening . LTG Duration 02/24/23 progressed 01/09/23 Two Impairment Decreased hip and trunk mobility Impairment Hip PROM (in deg's): IR: 40 R , 45 L; ER 45 R, 50 L. Lumbar AROM (in deg's): Flex 72, Ext 10, lateral flex 13 L, 15 R. Short Term Goal (STG) Pt will be educated in hip ( rotators, iliopsoas) and trunk (hamstring) mobility ex's to improve mobility and posture with proper core abdominal pressures during exercise and be able to exercise at her local gym w/o urinary leakage. 01/02/23: HEP: Hip ER/ Iliopsoas stretch, DKTC and standing trunk SB stretch. 01/09/23: HEP: Hamstring/LE neural stretch STG Duration 01/13/23 completed hip/ trunk stretches 01/09/23. [employer] Carver Goal (LTG) Improve hip mobility with pt able to perform Quick contractions in order to prevent urinary leakage in the presence of a strong urge. LTG Duration 02/24/23 One Impairment Pt lacks an independent self care HEP. Short Term Goal (STG) Pt educated in proper transfers to lessen core abdominal pressure. 12/12/22: Pt educated in proper transfer stand<>sit<> supine with initial education in lessening core abdominal pressure. 12/19/22: Pt educated in proper transfer sup<>sit<>stand coordinating breath work and PF contractions. STG Duration 12/23/22 (12/19/22: MET GOAL) Sp[employer] Carver Goal (LTG) Pt will be independent in a self care HEP for PF strengthening. 12/26/22: HEP: Kegels, hips on pillows in abscence of substitute muscles. LTG Duration 02/24/23 progressed 12/26/22 Assessment Summary Assessment Pt finally felt she understood how to hold the pelvic floor contraction without breathholding and was able to isolate PF during EMG biofeedback training. She was able to gain PF contraction awareness with use of E-stim. Physical Therapy Plan Frequency and Duration Frequency of Treatment 1x/Week Plan of Care Start Date 12/12/22 Plan of Care End Date 02/24/23 Next Visit Focus/Plan Next Note Type Treatment Note Next Visit Plan Assess response to PF awareness training. Add trunk posture with proper core abdominal pressures during exercise with goal of pt able to exercise at her local gym w/o urinary leakage. Assess abdominal soft tissue ( bladder) mobility. Ex/HEP: Improve hip mobility, PF/core stabilization strengthening.
--- NOTE | 2023-02-06 12:20 | PT.OTN ---
Current Diagnoses Stiffness of right hip, not elsewhere classified (02/06/23) Stiffness of left hip, not elsewhere classified (02/06/23) Muscle weakness (generalized) (02/06/23) Overactive bladder (02/06/23) Urinary tract infection, site not specified (02/06/23) Physical Therapy Treatment Note PT-OP-A Visit Information Start: 12/03/22 16:51 Freq: Status: Active Protocol: Document 02/06/23 11:21 LRN (Rec: 02/06/23 12:20 LRN [id number]) Out-Patient Physical Therapy Visit Information Visit Information Visit Type Treatment Note Visit Start Time 11:21 Visit Stop Time 12:00 Total Visit Minutes 39 Visit Number Evaluation Information Evaluation Date 12/12/22 Precautions Precautions Biscuspid aortic valve being monitored every 6 months. , no children. Takes an anti-biotic after intercourse to prevent UTI's. PT-OP-B Current Condition Start: 12/03/22 16:51 Freq: Status: Active Protocol: Document 12/12/22 10:37 LRN (Rec: 12/12/22 11:22 LRN [id number]) Current Condition History of Current Condition Onset Date 1 year ago. Current Complaints Urinary leakage with an urge. History of Current Condition Pt reports she got metal balls to strengthen her PF but they would fall out. She has also noticed that with friends when she drinks wine, watching TV when she gets up to use the bathroom she has urinary leakage. She will wet her underwear if she waits too long. She has on her own cut expresso in the morning and has found it is helpful. She reports urinating 8-10 times a day and 1 time during the night. Prior Treatments and Tests Pt purchased on her own weighted vaginal balls for PF strengthening. She used them for couple of weeks in standing, did not try in supine. Treatment Goals Patient/Caregiver Goals Pt goal is 1) to look for strengthening help. To strengthen her pelvic floor muscles so on standing, after waiting too long, she has no urinary leakage. 2) Be placed on a HEP of PF strengthening exercises. Personal Factors Other Personal Factors That May Effect Active: Plays golf w/o use of Therapy/Recovery cart, walks dog 1-2 miles daily. Pt wanting to get back into lifting weights to improve UE strength; therefore plans to use home row machine and join a gym to start lifting weights. PT-OP-C Subjective Start: 12/03/22 16:51 Freq: Status: Active Protocol: Document 02/06/23 11:21 LRN (Rec: 02/06/23 12:20 LRN [id number]) OP-PT Subjective Patient Comments Patient Comments Went on a trip and had no accidents. PT-OP-I Pelvic Floor Start: 12/03/22 16:51 Freq: Status: Active Protocol: Document 02/06/23 11:21 LRN (Rec: 02/06/23 12:20 LRN [id number]) Pelvic Floor Assessment SEMG (uV) Baseline 0.7 Quick Contraction 8.2 Recruitment Pattern Good Relaxation Good Holding Fair Stability of Hold Fair SEMG Stability of Rest Good PT-OP-J Posture/Palpation/Skin Start: 12/03/22 16:51 Freq: Status: Active Protocol: Document 12/12/22 10:37 LRN (Rec: 12/12/22 11:22 LRN [id number]) Posture Evaluation Position Standing Head/C-Spine Posture Forward Head L-Spine Posture Shifted Left Shoulder Posture (L) Elevated Scapula Posture (L) Elevated Pelvis Posture Anteriorly Tilted,(L) Iliac Crest Superior Comments Posture Comments Trunk lean to left PT-OP-K Range of Motion Start: 12/03/22 16:51 Freq: Status: Active Protocol: Document 12/12/22 10:37 LRN (Rec: 12/12/22 11:22 LRN [id number]) Lumbar Spine Range of Motion Lumbar Spine Active Degrees Testing Position Standing Flexion 72 Extension 15 Rotation Left 12 Rotation Right 10 Lateral Flexion Left 13 Lateral Flexion Right 15 ROM Limitations Soft Tissue Tightness Hip Goniometric Range of Motion Hip Right Passive Testing Position Supine Internal Rotation 40 External Rotation 45 Left Passive Testing Position Supine Internal Rotation 45 External Rotation 50 PT-OP-M Strength Start: 12/03/22 16:51 Freq: Status: Active Protocol: Document 12/12/22 10:37 LRN (Rec: 12/12/22 11:22 LRN [id number]) Trunk Strength Trunk Manual Muscle Testing Core Stabilization Loss of core stab with L hip flex and extension Hip Strength Hip Manual Muscle Testing Right Comments All strength is 5/5 Left Comments All strength is 5/5 PT-OP-Q Treatments Start: 12/03/22 16:51 Freq: Status: Active Protocol: Document 02/06/23 11:21 LRN (Rec: 02/06/23 12:20 LRN [id number]) Therapeutic Exercises Supine Exercises PF Long Holds Supine Exercise Name Long Holds Reps/Minutes 20' Rest needed btn bouts of contractions. Comments Avg max 8.0 uV's, Avg rest 1. 4 uV's PF Quick Flicks Supine Exercise Name Quick Flicks Reps/Minutes 10x 2, extra time needed for timing of contractions Comments Avg max 8.2 uV's, Avg rest 3. 1 uV's Resting tone Supine Exercise Name Resting tone assessed Equipment Used Vag electrode Reps/Minutes x1 Comments 0.7uV's Iliopsoas stretch Supine Exercise Name Iliopsoas stretch Side right Comments V cuing to not stretch into pain. Fig 4 stretch Supine Exercise Name Fig 4 stretch added to HEP Side bilateral Reps/Minutes 60 SH x 1, R>L Comments Cuing for holding comfortable stretch DKTC Supine Exercise Name DKTC stretch added to HEP Reps/Minutes 10SH x 6 Comments Cued for gentle stretch Other Exercises Sup<>Sigt<>Stand Other Exercise Name Reviewed Sup<>sit with proper breath work and discussed plank type ex. Reps/Minutes 2' Comments Discussed sit up type transfer w/recommendations to avoid sit ups and plank PT-OP-T Assessment and Plan Start: 12/03/22 16:51 Freq: Status: Active Protocol: Document 02/06/23 11:21 LRN (Rec: 02/06/23 12:20 N [id number]) Physical Therapy Assessment Rehab Potential Rehabilitation Potential Excellent Evaluation Complexity Number of Personal Factors/Comorbidities 1-2 Number of Body Systems Impaired 4 or More Clinical Presentation at Evaluation Evolving Impairments Impairments Activity Tolerance,Posture, Strength Other Impairments Urge urinary leakage. Goals Four Impairment Redness and tenderness at the [place] Short Term Goal (STG) Pt will be educated in proper vulvar/genital care. STG Duration 01/06/23 (01/09/23: MET GOAL) Three Impairment Decreased PF strength Short Term Goal (STG) Pt will be educated in urinary delay technique to be able to hold her urine in the presence of an urge until making it to a bathroom. 12/19/22: Bladder Irritants and Urge deference techinque. 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 01/09/23: One day in past week , was doing a lot of gardening . 02/06/23: 5 sec PF hold. Pt had no urinary leakage this past week. LTG Duration 02/24/23 (02/06/23: Partailly met goal, no urinary leakage) Two Impairment Decreased hip and trunk mobility Impairment Hip PROM (in deg's): IR: 40 R , 45 L; ER 45 R, 50 L. Lumbar AROM (in deg's): Flex 72, Ext 10, lateral flex 13 L, 15 R. Short Term Goal (STG) Pt will be educated in hip ( rotators, iliopsoas) and trunk (hamstring) mobility ex's to improve mobility and posture with proper core abdominal pressures during exercise and be able to exercise at her local gym w/o urinary leakage. 01/02/23: HEP: Hip ER/ Iliopsoas stretch, DKTC and standing trunk SB stretch. 01/09/23: HEP: Hamstring/LE neural stretch STG Duration 01/13/23 completed hip/ trunk stretches 01/09/23. Residential Goal (LTG) Improve hip mobility with pt able to perform Quick contractions in order to prevent urinary leakage in the presence of a strong urge. 02/06/23: Improved hip mobility for ER and improved symmetry ER/IR. Pt had no urinary leakage this past week . Pt understands when she drinks espresso she will have a strong urge and must void after first bladder warning; therefore pt able to control for urinary leakage. LTG Duration 02/24/23 (02/06/23: MET GOAL) One Impairment Pt lacks an independent self care HEP. Short Term Goal (STG) Pt educated in proper transfers to lessen core abdominal pressure. 12/12/22: Pt educated in proper transfer stand<>sit<> supine with initial education in lessening core abdominal pressure. 12/19/22: Pt educated in proper transfer sup<>sit<>stand coordinating breath work and PF contractions. STG Duration 12/23/22 (12/19/22: MET GOAL) Sericulturist Goal (LTG) Pt will be independent in a self care HEP for PF strengthening. 12/26/22: HEP: Kegels, hips on pillows in abscence of substitute muscles. LTG Duration 02/24/23 progressed 12/26/22 Assessment Summary Assessment + response to PF training. Pt PF strength has improved with quick flicks and with long holds. Pt needs training on PF strengthening with daily activities, then will probably be ready for DC to HEP for continued strengthening of PF. Physical Therapy Plan Frequency and Duration Frequency of Treatment 1x/Week Plan of Care Start Date 12/12/22 Plan of Care End Date 02/24/23 Therapeutic Interventions Therapeutic Interventions Home Exercise Program,Manual Therapy,Neuromuscular Re- education,Patient/Caregiver Education,Self-Care/Home Management,Soft Tissue Mobilization,Therapeutic Activities,Therapeutic Exercises Modalities Biofeedback,Cold Pack/Ice Massage,Electric Stimulation Next Visit Focus/Plan Next Note Type Discharge Summary Next Visit Plan DC after next visit of PF functional training and addressing ex at gym. Add trunk posture with proper core abdominal pressure training during exercise and assess if pt able to exercise at her local gym w/o urinary leakage (STG #2). Assess abdominal soft tissue ( bladder) mobility. HEP: Issue progressive PF/ core stabilization roll in/out strengthening. Educate in PF contractions with functional activities (gait, stairs, bending, reaching, etc )
--- NOTE | 2023-02-06 12:22 | PT.OTN ---
Current Diagnoses Stiffness of right hip, not elsewhere classified (02/06/23) Stiffness of left hip, not elsewhere classified (02/06/23) Muscle weakness (generalized) (02/06/23) Overactive bladder (02/06/23) Urinary tract infection, site not specified (02/06/23) Physical Therapy Treatment Note PT-OP-A Visit Information Start: 12/03/22 16:51 Freq: Status: Active Protocol: Document 02/06/23 11:21 LRN (Rec: 02/06/23 12:20 LRN [id number]) Out-Patient Physical Therapy Visit Information Visit Information Visit Type Treatment Note Visit Start Time 11:21 Visit Stop Time 12:00 Total Visit Minutes 39 Visit Number Evaluation Information Evaluation Date 12/12/22 Precautions Precautions Biscuspid aortic valve being monitored every 6 months. , no children. Takes an anti-biotic after intercourse to prevent UTI's. PT-OP-B Current Condition Start: 12/03/22 16:51 Freq: Status: Active Protocol: Document 12/12/22 10:37 LRN (Rec: 12/12/22 11:22 LRN [id number]) Current Condition History of Current Condition Onset Date 1 year ago. Current Complaints Urinary leakage with an urge. History of Current Condition Pt reports she got metal balls to strengthen her PF but they would fall out. She has also noticed that with friends when she drinks wine, watching TV when she gets up to use the bathroom she has urinary leakage. She will wet her underwear if she waits too long. She has on her own cut expresso in the morning and has found it is helpful. She reports urinating 8-10 times a day and 1 time during the night. Prior Treatments and Tests Pt purchased on her own weighted vaginal balls for PF strengthening. She used them for couple of weeks in standing, did not try in supine. Treatment Goals Patient/Caregiver Goals Pt goal is 1) to look for strengthening help. To strengthen her pelvic floor muscles so on standing, after waiting too long, she has no urinary leakage. 2) Be placed on a HEP of PF strengthening exercises. Personal Factors Other Personal Factors That May Effect Active: Plays golf w/o use of Therapy/Recovery cart, walks dog 1-2 miles daily. Pt wanting to get back into lifting weights to improve UE strength; therefore plans to use home row machine and join a gym to start lifting weights. PT-OP-C Subjective Start: 12/03/22 16:51 Freq: Status: Active Protocol: Document 02/06/23 11:21 LRN (Rec: 02/06/23 12:20 LRN [id number]) OP-PT Subjective Patient Comments Patient Comments Went on a trip and had no accidents. PT-OP-I Pelvic Floor Start: 12/03/22 16:51 Freq: Status: Active Protocol: Document 02/06/23 11:21 LRN (Rec: 02/06/23 12:20 LRN [id number]) Pelvic Floor Assessment SEMG (uV) Baseline 0.7 Quick Contraction 8.2 Recruitment Pattern Good Relaxation Good Holding Fair Stability of Hold Fair SEMG Stability of Rest Good PT-OP-J Posture/Palpation/Skin Start: 12/03/22 16:51 Freq: Status: Active Protocol: Document 12/12/22 10:37 LRN (Rec: 12/12/22 11:22 LRN [id number]) Posture Evaluation Position Standing Head/C-Spine Posture Forward Head L-Spine Posture Shifted Left Shoulder Posture (L) Elevated Scapula Posture (L) Elevated Pelvis Posture Anteriorly Tilted,(L) Iliac Crest Superior Comments Posture Comments Trunk lean to left PT-OP-K Range of Motion Start: 12/03/22 16:51 Freq: Status: Active Protocol: Document 02/06/23 11:21 LRN (Rec: 02/06/23 12:22 LRN [id number]) Hip Goniometric Range of Motion Hip Right Passive Testing Position Supine Internal Rotation 40 External Rotation 55 Left Passive Testing Position Supine Internal Rotation 40 External Rotation 50 PT-OP-M Strength Start: 12/03/22 16:51 Freq: Status: Active Protocol: Document 12/12/22 10:37 LRN (Rec: 12/12/22 11:22 LRN [id number]) Trunk Strength Trunk Manual Muscle Testing Core Stabilization Loss of core stab with L hip flex and extension Hip Strength Hip Manual Muscle Testing Right Comments All strength is 5/5 Left Comments All strength is 5/5 PT-OP-Q Treatments Start: 12/03/22 16:51 Freq: Status: Active Protocol: Document 02/06/23 11:21 LRN (Rec: 02/06/23 12:20 LRN [id number]) Therapeutic Exercises Supine Exercises PF Long Holds Supine Exercise Name Long Holds Reps/Minutes 20' Rest needed btn bouts of contractions. Comments Avg max 8.0 uV's, Avg rest 1. 4 uV's PF Quick Flicks Supine Exercise Name Quick Flicks Reps/Minutes 10x 2, extra time needed for timing of contractions Comments Avg max 8.2 uV's, Avg rest 3. 1 uV's Resting tone Supine Exercise Name Resting tone assessed Equipment Used Vag electrode Reps/Minutes x1 Comments 0.7uV's Iliopsoas stretch Supine Exercise Name Iliopsoas stretch Side right Comments V cuing to not stretch into pain. Fig 4 stretch Supine Exercise Name Fig 4 stretch added to HEP Side bilateral Reps/Minutes 60 SH x 1, R>L Comments Cuing for holding comfortable stretch DKTC Supine Exercise Name DKTC stretch added to HEP Reps/Minutes 10SH x 6 Comments Cued for gentle stretch Other Exercises Sup<>Sigt<>Stand Other Exercise Name Reviewed Sup<>sit with proper breath work and discussed plank type ex. Reps/Minutes 2' Comments Discussed sit up type transfer w/recommendations to avoid sit ups and plank PT-OP-T Assessment and Plan Start: 12/03/22 16:51 Freq: Status: Active Protocol: Document 02/06/23 11:21 LRN (Rec: 02/06/23 12:20 [facility] [id number]) Physical Therapy Assessment Rehab Potential Rehabilitation Potential Excellent Evaluation Complexity Number of Personal Factors/Comorbidities 1-2 Number of Body Systems Impaired 4 or More Clinical Presentation at Evaluation Evolving Impairments Impairments Activity Tolerance,Posture, Strength Other Impairments Urge urinary leakage. Goals Four Impairment Redness and tenderness at the [place] Short Term Goal (STG) Pt will be educated in proper vulvar/genital care. STG Duration 01/06/23 (01/09/23: MET GOAL) Three Impairment Decreased PF strength Short Term Goal (STG) Pt will be educated in urinary delay technique to be able to hold her urine in the presence of an urge until making it to a bathroom. 12/19/22: Bladder Irritants and Urge deference techinque. 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 01/09/23: One day in past week , was doing a lot of gardening . 02/06/23: 5 sec PF hold. Pt had no urinary leakage this past week. LTG Duration 02/24/23 (02/06/23: Partailly met goal, no urinary leakage) Two Impairment Decreased hip and trunk mobility Impairment Hip PROM (in deg's): IR: 40 R , 45 L; ER 45 R, 50 L. Lumbar AROM (in deg's): Flex 72, Ext 10, lateral flex 13 L, 15 R. Short Term Goal (STG) Pt will be educated in hip ( rotators, iliopsoas) and trunk (hamstring) mobility ex's to improve mobility and posture with proper core abdominal pressures during exercise and be able to exercise at her local gym w/o urinary leakage. 01/02/23: HEP: Hip ER/ Iliopsoas stretch, DKTC and standing trunk SB stretch. 01/09/23: HEP: Hamstring/LE neural stretch STG Duration 01/13/23 completed hip/ trunk stretches 01/09/23. Housekeeping Department Worker Goal (LTG) Improve hip mobility with pt able to perform Quick contractions in order to prevent urinary leakage in the presence of a strong urge. 02/06/23: Improved hip mobility for ER and improved symmetry ER/IR. Pt had no urinary leakage this past week . Pt understands when she drinks espresso she will have a strong urge and must void after first bladder warning; therefore pt able to control for urinary leakage. LTG Duration 02/24/23 (02/06/23: MET GOAL) One Impairment Pt lacks an independent self care HEP. Short Term Goal (STG) Pt educated in proper transfers to lessen core abdominal pressure. 12/12/22: Pt educated in proper transfer stand<>sit<> supine with initial education in lessening core abdominal pressure. 12/19/22: Pt educated in proper transfer sup<>sit<>stand coordinating breath work and PF contractions. STG Duration 12/23/22 (12/19/22: MET GOAL) Housekeeping Department Worker Goal (LTG) Pt will be independent in a self care HEP for PF strengthening. 12/26/22: HEP: Kegels, hips on pillows in abscence of substitute muscles. LTG Duration 02/24/23 progressed 12/26/22 Assessment Summary Assessment + response to PF training. Pt PF strength has improved with quick flicks and with long holds. Pt needs training on PF strengthening with daily activities, then will probably be ready for DC to HEP for continued strengthening of PF. Physical Therapy Plan Frequency and Duration Frequency of Treatment 1x/Week Plan of Care Start Date 12/12/22 Plan of Care End Date 02/24/23 Therapeutic Interventions Therapeutic Interventions Home Exercise Program,Manual Therapy,Neuromuscular Re- education,Patient/Caregiver Education,Self-Care/Home Management,Soft Tissue Mobilization,Therapeutic Activities,Therapeutic Exercises Modalities Biofeedback,Cold Pack/Ice Massage,Electric Stimulation Next Visit Focus/Plan Next Note Type Discharge Summary Next Visit Plan DC after next visit of PF functional training and addressing ex at gym. Add trunk posture with proper core abdominal pressure training during exercise and assess if pt able to exercise at her local gym w/o urinary leakage (STG #2). Assess abdominal soft tissue ( bladder) mobility. HEP: Issue progressive PF/ core stabilization roll in/out strengthening. Educate in PF contractions with functional activities (gait, stairs, bending, reaching, etc )
--- NOTE | 2023-02-13 19:01 | PT.OTN ---
Current Diagnoses Stiffness of right hip, not elsewhere classified (02/13/23) Stiffness of left hip, not elsewhere classified (02/13/23) Muscle weakness (generalized) (02/13/23) Overactive bladder (02/13/23) Urinary tract infection, site not specified (02/13/23) Physical Therapy Treatment Note PT-OP-A Visit Information Start: 12/03/22 16:51 Freq: Status: Active Protocol: Document 02/13/23 11:16 LRN (Rec: 02/13/23 12:12 LRN [id number]) Out-Patient Physical Therapy Visit Information Visit Information Visit Type Treatment Note Visit Start Time 11:16 Visit Stop Time 12:00 Total Visit Minutes 44 Visit Number Evaluation Information Evaluation Date 12/12/22 Precautions Precautions Biscuspid aortic valve being monitored every 6 months. , no children. Takes an anti-biotic after intercourse to prevent UTI's. PT-OP-B Current Condition Start: 12/03/22 16:51 Freq: Status: Active Protocol: Document 12/12/22 10:37 LRN (Rec: 12/12/22 11:22 LRN [id number]) Current Condition History of Current Condition Onset Date 1 year ago. Current Complaints Urinary leakage with an urge. History of Current Condition Pt reports she got metal balls to strengthen her PF but they would fall out. She has also noticed that with friends when she drinks wine, watching TV when she gets up to use the bathroom she has urinary leakage. She will wet her underwear if she waits too long. She has on her own cut expresso in the morning and has found it is helpful. She reports urinating 8-10 times a day and 1 time during the night. Prior Treatments and Tests Pt purchased on her own weighted vaginal balls for PF strengthening. She used them for couple of weeks in standing, did not try in supine. Treatment Goals Patient/Caregiver Goals Pt goal is 1) to look for strengthening help. To strengthen her pelvic floor muscles so on standing, after waiting too long, she has no urinary leakage. 2) Be placed on a HEP of PF strengthening exercises. Personal Factors Other Personal Factors That May Effect Active: Plays golf w/o use of Therapy/Recovery cart, walks dog 1-2 miles daily. Pt wanting to get back into lifting weights to improve UE strength; therefore plans to use home row machine and join a gym to start lifting weights. PT-OP-C Subjective Start: 12/03/22 16:51 Freq: Status: Active Protocol: Document 02/13/23 11:16 LRN (Rec: 02/13/23 12:12 LRN [id number]) OP-PT Subjective Patient Comments Patient Comments No accidents and hasn't been maxing out the water. Has changed behaviour. Patient Questionnaires Pelvic Pain and Urgency/Frequency Patient Symptom Scale Pelvic Pain Score 20 PT-OP-I Pelvic Floor Start: 12/03/22 16:51 Freq: Status: Active Protocol: Document 02/06/23 11:21 LRN (Rec: 02/06/23 12:20 LRN [id number]) Pelvic Floor Assessment SEMG (uV) Baseline 0.7 Quick Contraction 8.2 Recruitment Pattern Good Relaxation Good Holding Fair Stability of Hold Fair SEMG Stability of Rest Good PT-OP-J Posture/Palpation/Skin Start: 12/03/22 16:51 Freq: Status: Active Protocol: Document 12/12/22 10:37 LRN (Rec: 12/12/22 11:22 LRN [id number]) Posture Evaluation Position Standing Head/C-Spine Posture Forward Head L-Spine Posture Shifted Left Shoulder Posture (L) Elevated Scapula Posture (L) Elevated Pelvis Posture Anteriorly Tilted,(L) Iliac Crest Superior Comments Posture Comments Trunk lean to left PT-OP-K Range of Motion Start: 12/03/22 16:51 Freq: Status: Active Protocol: Document 02/06/23 11:21 LRN (Rec: 02/06/23 12:22 LRN [id number]) Hip Goniometric Range of Motion Hip Right Passive Testing Position Supine Internal Rotation 40 External Rotation 55 Left Passive Testing Position Supine Internal Rotation 40 External Rotation 50 PT-OP-M Strength Start: 12/03/22 16:51 Freq: Status: Active Protocol: Document 12/12/22 10:37 LRN (Rec: 12/12/22 11:22 LRN [id number]) Trunk Strength Trunk Manual Muscle Testing Core Stabilization Loss of core stab with L hip flex and extension Hip Strength Hip Manual Muscle Testing Right Comments All strength is 5/5 Left Comments All strength is 5/5 PT-OP-Q Treatments Start: 12/03/22 16:51 Freq: Status: Active Protocol: Document 02/13/23 11:16 LRN (Rec: 02/13/23 12:12 LRN [id number]) Therapeutic Exercises Supine Exercises Hamstring/LE neural stretch Supine Exercise Name Hamstring/LE neural stretch ( 10 x each: ankle p, breathing, hold stretch) Side bilateral Reps/Minutes 5' (3 cycles of stretch>ankle pumps) each leg. Comments Extra time for training of best possible stretch Standing Exercises Trunk rot with pelvis Standing Exercise Name Full trunk rot for golCloudMineg. Side bilateral Comments Cuing for breath Trunk isolated rot Standing Exercise Name Standing trunk rot Side bilateral Comments Cuing to keep pelvis still Trunk senia rot Standing Exercise Name Sidestepping Side bilateral SB trunk stretch Standing Exercise Name SB trunk review Therapeutic Activity Therapeutic Activity PF/Gait Name PF contracion w/gait Reps/Minutes 5' Comments Cuing for breathing PF/Strairs Name PF contraction w/stair ambulation Reps/Minutes 3' Comments Cuing for breathing Manual Therapy Treatment Soft Tissue Mobilization Abdomen Body Location Abdomen Mobilization Type Sustained Pressure Comments Pt has mild tightness with mobility superiorly, L laterally and with CW rotation . Self-Care/Home Management Treatment Education Patient Education Home Exercise Program Other Education Educated and discusssed proper posturing sitting and standing. Educated and discussed pt in PF functional training ( walking, stairs, daily activities) and addressing ex at gym. Activities Self-Care/Home Management Activities Handouts issued for: Proper sitting and standing posturing and for daily activities. Issued and reviewed handouts for HEP: Trunk rotation strengthening (isometric, isolated trunk active motion, full trunk/pelvic rotation strengthening). Issued HEP: Hip stretches: Ilipsoas, lateral hip and fig 4 stretch, and for hamstring/ LE neural stretch. PT-OP-T Assessment and Plan Start: 12/03/22 16:51 Freq: Status: Active Protocol: Document 02/13/23 11:16 LRN (Rec: 02/13/23 12:12 LRN [id number]) Physical Therapy Assessment Goals Four Impairment Redness and tenderness at the [place] Short Term Goal (STG) Pt will be educated in proper vulvar/genital care. STG Duration 01/06/23 (01/09/23: MET GOAL) Three Impairment Decreased PF strength Short Term Goal (STG) Pt will be educated in urinary delay technique to be able to hold her urine in the presence of an urge until making it to a bathroom. 12/19/22: Bladder Irritants and Urge deference techinque. STG Duration 01/13/23 (12/19/22: MET GOAL) Area Plant Manager Goal (LTG) Improve PF strength with pt able to hold PF contraction for 8-10 secs in order to prevent urinary leakage with transfer sit<>jewel bearing grinder the presence of an urge. 01/09/23: One day in past week , was doing a lot of gardening . 02/06/23: 5 sec PF hold. Pt had no urinary leakage this past week. 02/13/23: Not assesed internally, but pt notes she is not having urinary leakage with transfer sit<>jewel bearing grinder the presence of an urge. LTG Duration 02/24/23 (02/13/23: MET GOAL) Two Impairment Decreased hip and trunk mobility Impairment Hip PROM (in deg's): IR: 40 R , 45 L; ER 45 R, 50 L. Lumbar AROM (in deg's): Flex 72, Ext 10, lateral flex 13 L, 15 R. Short Term Goal (STG) Pt will be educated in hip ( rotators, iliopsoas) and trunk (hamstring) mobility ex's to improve mobility and posture with proper core abdominal pressures during exercise and be able to exercise at her local gym w/o urinary leakage. 01/02/23: HEP: Hip ER/ Iliopsoas stretch, DKTC and standing trunk SB stretch. 01/09/23: HEP: Hamstring/LE neural stretch. 02/13/23: HEP: Hip stretches and hamstring LE neural stretch. STG Duration 01/13/23 (02/13/23: MET GOAL) Half-Way Goal (LTG) Improve hip mobility with pt able to perform Quick contractions in order to prevent urinary leakage in the presence of a strong urge. 02/06/23: Improved hip mobility for ER and improved symmetry ER/IR. Pt had no urinary leakage this past week . Pt understands when she drinks espresso she will have a strong urge and must void after first bladder warning; therefore pt able to control for urinary leakage. LTG Duration 02/24/23 (02/06/23: MET GOAL) One Impairment Pt lacks an independent self care HEP. Short Term Goal (STG) Pt educated in proper transfers to lessen core abdominal pressure. 4/24/23: Pt educated in proper transfer stand<>sit<> supine with initial education in lessening core abdominal pressure. 12/19/22: Pt educated in proper transfer sup<>sit<>stand coordinating breath work and PF contractions. STG Duration 12/23/22 (12/19/22: MET GOAL) Area Plant Manager Goal (LTG) Pt will be independent in a self care HEP for PF strengthening. 12/26/22: HEP: Kegels, hips on pillows in abscence of substitute muscles. 02/13/23: Pt educated in PF strengthening/proper breathing technique with functional activities and with trunk rotation associated to golfing and proper trunk posture with proper core abdominal pressure training during exercise. LTG Duration 02/24/23 (02/13/23: MET GOAL) Assessment Summary Assessment The pt has attended 9 physical therapy visits and is able to maintain urinary continence in the presence of an urge when she incorporated lessens learned from her physical therapy rehabilition. Pt appears to have a good understanding of education today regarding PF functional strengthening and addressing ex at a gym. Her condition has improved per PUF score of 9 (was 20, score 20 =91% likelihood +PST and score 10- 14 =75% likehood of +PST). Pt only has mild tightness of her abdomen that does not appear to limit her deep breathing ability; therefore no further abdominal treatment needed. The pt is ready to be placed on a HEP of PF strengthening. Physical Therapy Plan Discharge Physical Therapy Discharge Reasons Goals Met Discharge Comments Back pain can effect PF strength; therefore if the pt has onset of back pain, return for back care would be appropriate. Thank you for your referral.
--- NOTE | 2023-02-13 19:04 | PT.OTN ---
Current Diagnoses Stiffness of right hip, not elsewhere classified (02/13/23) Stiffness of left hip, not elsewhere classified (02/13/23) Muscle weakness (generalized) (02/13/23) Overactive bladder (02/13/23) Urinary tract infection, site not specified (02/13/23) Physical Therapy Treatment Note PT-OP-A Visit Information Start: 12/03/22 16:51 Freq: Status: Active Protocol: Document 02/13/23 11:16 LRN (Rec: 02/13/23 12:12 LRN [id number]) Out-Patient Physical Therapy Visit Information Visit Information Visit Type Treatment Note Visit Start Time 11:16 Visit Stop Time 12:00 Total Visit Minutes 44 Visit Number Evaluation Information Evaluation Date 12/12/22 Precautions Precautions Biscuspid aortic valve being monitored every 6 months. , no children. Takes an anti-biotic after intercourse to prevent UTI's. PT-OP-B Current Condition Start: 12/03/22 16:51 Freq: Status: Active Protocol: Document 12/12/22 10:37 LRN (Rec: 12/12/22 11:22 LRN [id number]) Current Condition History of Current Condition Onset Date 1 year ago. Current Complaints Urinary leakage with an urge. History of Current Condition Pt reports she got metal balls to strengthen her PF but they would fall out. She has also noticed that with friends when she drinks wine, watching TV when she gets up to use the bathroom she has urinary leakage. She will wet her underwear if she waits too long. She has on her own cut expresso in the morning and has found it is helpful. She reports urinating 8-10 times a day and 1 time during the night. Prior Treatments and Tests Pt purchased on her own weighted vaginal balls for PF strengthening. She used them for couple of weeks in standing, did not try in supine. Treatment Goals Patient/Caregiver Goals Pt goal is 1) to look for strengthening help. To strengthen her pelvic floor muscles so on standing, after waiting too long, she has no urinary leakage. 2) Be placed on a HEP of PF strengthening exercises. Personal Factors Other Personal Factors That May Effect Active: Plays golf w/o use of Therapy/Recovery cart, walks dog 1-2 miles daily. Pt wanting to get back into lifting weights to improve UE strength; therefore plans to use home row machine and join a gym to start lifting weights. PT-OP-C Subjective Start: 12/03/22 16:51 Freq: Status: Active Protocol: Document 02/13/23 11:16 LRN (Rec: 02/13/23 12:12 LRN [id number]) OP-PT Subjective Patient Comments Patient Comments No accidents and hasn't been maxing out the water. Has changed behaviour. Patient Questionnaires Pelvic Pain and Urgency/Frequency Patient Symptom Scale Pelvic Pain Score 20 PT-OP-I Pelvic Floor Start: 12/03/22 16:51 Freq: Status: Active Protocol: Document 02/06/23 11:21 LRN (Rec: 02/06/23 12:20 LRN [id number]) Pelvic Floor Assessment SEMG (uV) Baseline 0.7 Quick Contraction 8.2 Recruitment Pattern Good Relaxation Good Holding Fair Stability of Hold Fair SEMG Stability of Rest Good PT-OP-J Posture/Palpation/Skin Start: 12/03/22 16:51 Freq: Status: Active Protocol: Document 12/12/22 10:37 LRN (Rec: 12/12/22 11:22 LRN [id number]) Posture Evaluation Position Standing Head/C-Spine Posture Forward Head L-Spine Posture Shifted Left Shoulder Posture (L) Elevated Scapula Posture (L) Elevated Pelvis Posture Anteriorly Tilted,(L) Iliac Crest Superior Comments Posture Comments Trunk lean to left PT-OP-K Range of Motion Start: 12/03/22 16:51 Freq: Status: Active Protocol: Document 02/06/23 11:21 LRN (Rec: 02/06/23 12:22 LRN [id number]) Hip Goniometric Range of Motion Hip Right Passive Testing Position Supine Internal Rotation 40 External Rotation 55 Left Passive Testing Position Supine Internal Rotation 40 External Rotation 50 PT-OP-M Strength Start: 12/03/22 16:51 Freq: Status: Active Protocol: Document 12/12/22 10:37 LRN (Rec: 12/12/22 11:22 LRN [id number]) Trunk Strength Trunk Manual Muscle Testing Core Stabilization Loss of core stab with L hip flex and extension Hip Strength Hip Manual Muscle Testing Right Comments All strength is 5/5 Left Comments All strength is 5/5 PT-OP-Q Treatments Start: 12/03/22 16:51 Freq: Status: Active Protocol: Document 02/13/23 11:16 LRN (Rec: 02/13/23 12:12 LRN [id number]) Therapeutic Exercises Supine Exercises Hamstring/LE neural stretch Supine Exercise Name Hamstring/LE neural stretch ( 10 x each: ankle p, breathing, hold stretch) Side bilateral Reps/Minutes 5' (3 cycles of stretch>ankle pumps) each leg. Comments Extra time for training of best possible stretch Standing Exercises Trunk rot with pelvis Standing Exercise Name Full trunk rot for golEcoNovag. Side bilateral Comments Cuing for breath Trunk isolated rot Standing Exercise Name Standing trunk rot Side bilateral Comments Cuing to keep pelvis still Trunk senia rot Standing Exercise Name Sidestepping Side bilateral SB trunk stretch Standing Exercise Name SB trunk review Therapeutic Activity Therapeutic Activity PF/Gait Name PF contracion w/gait Reps/Minutes 5' Comments Cuing for breathing PF/Strairs Name PF contraction w/stair ambulation Reps/Minutes 3' Comments Cuing for breathing Manual Therapy Treatment Soft Tissue Mobilization Abdomen Body Location Abdomen Mobilization Type Sustained Pressure Comments Pt has mild tightness with mobility superiorly, L laterally and with CW rotation . Self-Care/Home Management Treatment Education Patient Education Home Exercise Program Other Education Educated and discusssed proper posturing sitting and standing. Educated and discussed pt in PF functional training ( walking, stairs, daily activities) and addressing ex at gym. Activities Self-Care/Home Management Activities Handouts issued for: Proper sitting and standing posturing and for daily activities. Issued and reviewed handouts for HEP: Trunk rotation strengthening (isometric, isolated trunk active motion, full trunk/pelvic rotation strengthening). Issued HEP: Hip stretches: Ilipsoas, lateral hip and fig 4 stretch, and for hamstring/ LE neural stretch. Issued Lev 2 TBand for trunk ex's. PT-OP-T Assessment and Plan Start: 12/03/22 16:51 Freq: Status: Active Protocol: Document 02/13/23 11:16 LRN (Rec: 02/13/23 12:12 N [id number]) Physical Therapy Assessment Goals Four Impairment Redness and tenderness at the [place] Short Term Goal (STG) Pt will be educated in proper vulvar/genital care. STG Duration 01/06/23 (01/09/23: MET GOAL) Three Impairment Decreased PF strength Short Term Goal (STG) Pt will be educated in urinary delay technique to be able to hold her urine in the presence of an urge until making it to a bathroom. 12/19/22: Bladder Irritants and Urge deference techinque. STG Duration 01/13/23 (12/19/22: MET GOAL) Mcc Goal (LTG) Improve PF strength with pt able to hold PF contraction for 8-10 secs in order to prevent urinary leakage with transfer sit<>marketing operations consultant the presence of an urge. 01/09/23: One day in past week , was doing a lot of gardening . 02/06/23: 5 sec PF hold. Pt had no urinary leakage this past week. 02/13/23: Not assesed internally, but pt notes she is not having urinary leakage with transfer sit<>marketing operations consultant the presence of an urge. LTG Duration 02/24/23 (02/13/23: MET GOAL) Two Impairment Decreased hip and trunk mobility Impairment Hip PROM (in deg's): IR: 40 R , 45 L; ER 45 R, 50 L. Lumbar AROM (in deg's): Flex 72, Ext 10, lateral flex 13 L, 15 R. Short Term Goal (STG) Pt will be educated in hip ( rotators, iliopsoas) and trunk (hamstring) mobility ex's to improve mobility and posture with proper core abdominal pressures during exercise and be able to exercise at her local gym w/o urinary leakage. 01/02/23: HEP: Hip ER/ Iliopsoas stretch, DKTC and standing trunk SB stretch. 01/09/23: HEP: Hamstring/LE neural stretch. 02/13/23: HEP: Hip stretches and hamstring LE neural stretch. STG Duration 01/13/23 (02/13/23: MET GOAL) Mdm Developer Goal (LTG) Improve hip mobility with pt able to perform Quick contractions in order to prevent urinary leakage in the presence of a strong urge. 02/06/23: Improved hip mobility for ER and improved symmetry ER/IR. Pt had no urinary leakage this past week . Pt understands when she drinks espresso she will have a strong urge and must void after first bladder warning; therefore pt able to control for urinary leakage. LTG Duration 02/24/23 (02/06/23: MET GOAL) One Impairment Pt lacks an independent self care HEP. Short Term Goal (STG) Pt educated in proper transfers to lessen core abdominal pressure. 12/12/22: Pt educated in proper transfer stand<>sit<> supine with initial education in lessening core abdominal pressure. 12/19/22: Pt educated in proper transfer sup<>sit<>stand coordinating breath work and PF contractions. STG Duration 12/23/22 (12/19/22: MET GOAL) Mcc Goal (LTG) Pt will be independent in a self care HEP for PF strengthening. 12/26/22: HEP: Kegels, hips on pillows in abscence of substitute muscles. 02/13/23: Pt educated in PF strengthening/proper breathing technique with functional activities and with trunk rotation associated to golfing and proper trunk posture with proper core abdominal pressure training during exercise. LTG Duration 02/24/23 (02/13/23: MET GOAL) Assessment Summary Assessment The pt has attended 9 physical therapy visits and is able to maintain urinary continence in the presence of an urge when she incorporated lessens learned from her physical therapy rehabilition. Pt appears to have a good understanding of education today regarding PF functional strengthening and addressing ex at a gym. Her condition has improved per PUF score of 9 (was 20, score 20 =91% likelihood +PST and score 10- 14 =75% likehood of +PST). Pt only has mild tightness of her abdomen that does not appear to limit her deep breathing ability; therefore no further abdominal treatment needed. The pt is ready to be placed on a HEP of PF strengthening. Physical Therapy Plan Discharge Physical Therapy Discharge Reasons Goals Met Discharge Comments Back pain can effect PF strength; therefore if the pt has onset of back pain, return for back care would be appropriate. Thank you for your referral.
== END 2023-02-14 12:29 | disposition home or self-care (01) ==
LOC: PHYS 11:15
PROVIDERS: Family Provider Student in an Organized Health Care Education/Training Program; PCP Student in an Organized Health Care Education/Training Program; Referring Provider Student in an Organized Health Care Education/Training Program; Visit Provider Student in an Organized Health Care Education/Training Program
DX: N32.81 Overactive bladder (principal); N39.0 Urinary tract infection, site not specified; M62.81 Muscle weakness (generalized); M25.652 Stiffness of left hip, not elsewhere classified; M25.651 Stiffness of right hip, not elsewhere classified
CPT/HCPCS: 97110; 97112; 97162; 97530; 97535

== ENCOUNTER → 2023-05-10 08:02 | Outpatient (CLI) | payer MEDICARE, SELFPAY ==
--- NOTE | 2023-05-10 | DI.MG.S_ITS ---
BILATERAL DIGITAL SCREENING MAMMOGRAM 3D/2D WITH CAD: 05/10/2023 CLINICAL: Routine screening. Family history of breast cancer. Comparison is made to exams dated: 04/29/2022 mammogram, 04/30/2021 mammogram, and 04/02/2020 mammogram - [facility]. Both breasts are heterogeneously dense, which may obscure small masses (category c / 51-75% glandular tissue). Current study was also evaluated with a Computer Aided Detection (CAD) system. No significant masses, calcifications, or other findings are seen in either breast. There has been no significant interval change. IMPRESSION: NEGATIVE There is no mammographic evidence of malignancy. A 1 year screening mammogram is recommended. Based on the Tyrer Cuzick model (a risk assessment model) the patient's lifetime risk is 13.3% and her 10 year risk is 9.9%. According to the ACR, ACS, and NCCN guidelines, an annual breast MRI exam along with mammogram is recommended if the patient's lifetime risk is 20% or greater. This exam was interpreted at Station ID: [id number]. NOTE: For mammograms, a report in lay terms will be sent to the patient. Approximately 15% of breast malignancies will not be visualized mammographically. In the management of a palpable breast mass, a negative mammogram must not discourage biopsy of a clinically suspicious lesion. Electronically Signed By: Mack garduno/mary kate:05/10/2023 09:26:54 letter sent: Normal Exam ACR BI-RADS Category 1: Negative [id number]
== END ==
PROVIDERS: Family Provider Student in an Organized Health Care Education/Training Program; PCP Pediatrics; Referring Provider Pediatrics; Visit Provider Pediatrics
DX: Z12.31 Encounter for screening mammogram for malignant neoplasm of breast (principal); Z80.3 Family history of malignant neoplasm of breast
CPT/HCPCS: 77063; 77067

== ENCOUNTER → 2023-10-16 09:09 | Outpatient (CLI) | payer MEDICARE, SELFPAY ==
[2023-10-16 10:16] LABS: Alanine Aminotransferase 23 IU/L (<35); Albumin Globulin Ratio 1.4 (1.0-2.8); Alkaline Phosphatase 67 U/L (38-126); Aspartate Aminotransferase 31 IU/L (14-36); BUN Creatinine Ratio 26.5 (6-22); Bilirubin Total 0.8 mg/dL (0.2-1.3); Blood Urea Nitrogen 18 mg/dL (7-17); Calcium 9.3 mg/dL (8.4-10.2); Carbon Dioxide 30 mmol/L (22-32); Chloride 102 mmol/L (98-107); Cholesterol 185 mg/dL (140-199); Estimated Glomerular Filt Rate > 60 mL/min (>60); Globulin 2.8 g/dL (1.7-4.1); Glucose 86 mg/dL (80-110); HDL Cholesterol 103 mg/dL (40-60); HEMOLYSIS < 15 (0-50); LDL Cholesterol Calculated 75 mg/dL (<100); Potassium 4.2 mmol/L (3.4-5.1); Sodium 138 mmol/L (137-145); Total Protein 6.8 g/dL (6.3-8.2); Triglycerides 34 mg/dL (35-150)
== END ==
PROVIDERS: Family Provider Student in an Organized Health Care Education/Training Program; PCP Family Medicine; Referring Provider Family Medicine; Visit Provider Family Medicine
DX: Z00.00 Encounter for general adult medical examination without abnormal findings (principal); I35.0 Nonrheumatic aortic (valve) stenosis; Q23.1 Congenital insufficiency of aortic valve; Z86.19 Personal history of other infectious and parasitic diseases
CPT/HCPCS: 36415; 80053; 80061

== ENCOUNTER → 2024-06-17 08:23 | Outpatient (CLI) | payer MEDICARE, SELFPAY ==
--- NOTE | 2024-06-17 08:24 | DI.MG.S_ITS ---
BILATERAL DIGITAL SCREENING MAMMOGRAM 3D/2D WITH CAD: 06/17/2024 CLINICAL: Routine screening. Family history of breast cancer. Comparison is made to exams dated: 05/10/2023 mammogram, 04/29/2022 mammogram, and 04/30/20[address] - [facility]. The breasts are heterogeneously dense, which may obscure small masses (category c / 51-75% glandular tissue). Current study was also evaluated with a Computer Aided Detection (CAD) system. No significant masses, calcifications, or other findings are seen in either breast. There has been no significant interval change. IMPRESSION: NEGATIVE There is no mammographic evidence of malignancy. A 1 year screening mammogram is recommended. Based on the Tyrer Cuzick model (a risk assessment model) the patient's lifetime risk is 12.8% and her 10 year risk is 10.1%. According to the ACR, ACS, and NCCN guidelines, an annual breast MRI exam along with mammogram is recommended if the patient's lifetime risk is 20% or greater. This exam was interpreted at Station ID: [id number]. NOTE: For mammograms, a report in lay terms will be sent to the patient. Approximately 15% of breast malignancies will not be visualized mammographically. In the management of a palpable breast mass, a negative mammogram must not discourage biopsy of a clinically suspicious lesion. Electronically Signed By: Mack garduno/mary kate:06/17/2024 14:48:41 letter sent: Normal Exam ACR BI-RADS Category 1: Negative
== END ==
LOC: MAMMO 08:23
PROVIDERS: Family Provider Family Medicine; PCP Family Medicine; Referring Provider Family Medicine; Visit Provider Family Medicine
DX: Z12.31 Encounter for screening mammogram for malignant neoplasm of breast (principal); Z80.3 Family history of malignant neoplasm of breast; R92.333 Mammographic heterogeneous density, bilateral breasts
CPT/HCPCS: 77063; 77067

== ENCOUNTER → 2024-10-21 09:22 | Outpatient (CLI) | payer MEDICARE, SELFPAY ==
[2024-10-21 10:49] LABS: Alanine Aminotransferase 23 IU/L (<35); Albumin 4.4 g/dL (3.5-5.0); Albumin Globulin Ratio 1.8 (1.0-2.8); Alkaline Phosphatase 75 U/L (38-126); Aspartate Aminotransferase 33 IU/L (14-36); BUN Creatinine Ratio 24.3 (6-22); Bilirubin Total 0.9 mg/dL (0.2-1.3); Blood Urea Nitrogen 17 mg/dL (7-17); Calcium 9.4 mg/dL (8.4-10.2); Carbon Dioxide 29 mmol/L (22-32); Chloride 102 mmol/L (98-107); Cholesterol 197 mg/dL (140-199); Estimated Glomerular Filt Rate > 60 mL/min (>60); Globulin 2.4 g/dL (1.7-4.1); Glucose 88 mg/dL (80-110); HEMOLYSIS < 15 (0-50); Sodium 138 mmol/L (137-145); Total Protein 6.8 g/dL (6.3-8.2); Triglycerides 40 mg/dL (35-150)
[2024-10-21 10:57] LABS: HDL Cholesterol 117 mg/dL (40-60); LDL Cholesterol Calculated 72 mg/dL (<100)
== END ==
PROVIDERS: PCP Family Medicine; Referring Provider Family Medicine; Visit Provider Family Medicine
DX: Z00.00 Encounter for general adult medical examination without abnormal findings (principal); I35.0 Nonrheumatic aortic (valve) stenosis
CPT/HCPCS: 36415; 80053; 80061